=== PATIENT | male | born 1970 | race Hispanic/Latino ===

== ENCOUNTER 2020-04-02 12:26 | Emergency (ER) | payer SELFPAY ==
[~2020-04-02] VITALS: Ht 167.6 cm; Wt 55.5 kg
[~2020-04-02 12:26] MED LIST: NAPROSYN375 MG PO; NAPROXEN500 MG PO; TORADOL OR; TRAMADOL HCL50 MG PO
[2020-04-02] MEDS ORDERED: CENTRUM ADULTS1 TAB PO (12:48)
[2020-04-02 13:42] LABS: IMMATURE GRANULOCYTES 0.7 % (0.0-5.0); MEAN CELL VOLUME 91.7 fL CALC (80.0-100.0); MEAN CORPUSCULAR HGB 29.6 pG CALC (26.0-32.0); MEAN CORPUSCULAR HGB CONC 32.3 g/dL CAL (32.0-36.0); NEUT# 13.9 thou/uL (1.82-7.42); RED BLOOD COUNT 2.06 mill/uL (4.70-6.10); RED CELL DISTRI WIDTH 18.8 % (11.5-15.5)
[2020-04-02 13:58] LABS: BUN 7 mg/dL (9-20); BUN/CREATININE RATIO 7 (12-20 (CALC)); CHLORIDE 91 mmol/l (95-108); CREATININE 0.9 mg/dL (0.7-1.3); GFR > 60 ML/MIN (>=60 (CALC)); GFR FOR AFR.AMER. > 60 ML/MIN (>=60 (CALC)); LIPASE 172 u/l (23-300); POTASSIUM 4.7 mmol/l (3.5-5.1); SGOT/AST 85 u/l (17-59)
[2020-04-02 13:59] LABS: HEMATOCRIT 18.9 % (39.0-50.0); HEMOGLOBIN 6.1 g/dl (14.0-18.0)
[2020-04-02 14:00] LABS: ALBUMIN 2.7 g/dL (3.2-5.0); ALKALINE PHOSPHATASE 251 u/l (38-126); ANION GAP 16 (6-22 (CALC)); BILIRUBIN, TOTAL 2.7 mg/dL (0.0-1.4); CARBON DIOXIDE 19 mmol/l (22-30); SODIUM 121 mmol/l (137-146)
[2020-04-02 15:59] VITALS: BP 125/62
[2020-04-02 16:15] VITALS: BP 115/71
[2020-04-02 17:00] VITALS: BP 124/80
[2020-04-03 08:54] VITALS: BP 143/80
== END 2020-04-02 18:27 | disposition short-term general hospital (02) | DRG 947 ==
LOC: ED 12:26
PROVIDERS: Family Medicine
PROC: 30233N1 Transfusion of Nonautologous Red Blood Cells into Peripheral Vein, Percutaneous Approach (ICD-10-PCS; principal; 2020-04-02)
DX: R18.8 Other ascites (principal); J18.9 Pneumonia, unspecified organism; R19.5 Other fecal abnormalities; D64.9 Anemia, unspecified; F10.20 Alcohol dependence, uncomplicated; Z59.0 Homelessness; Z20.828 Contact with and (suspected) exposure to other viral communicable diseases
CPT/HCPCS: P9016; Q9967

== ENCOUNTER 2020-04-15 15:15 | Emergency (ER) | payer SELFPAY ==
[~2020-04-15] VITALS: Ht 167.6 cm; Wt 68.0 kg
[~2020-04-15 15:15] MED LIST changes: +CENTRUM ADULTS1 TAB PO
[2020-04-15 18:24] LABS: IMMATURE GRANULOCYTES 0.7 % (0.0-5.0); MEAN CELL VOLUME 92.1 fL CALC (80.0-100.0); MEAN CORPUSCULAR HGB 30.9 pG CALC (26.0-32.0); MEAN CORPUSCULAR HGB CONC 33.6 g/dL CAL (32.0-36.0); NEUT# 11.84 thou/uL (1.82-7.42); RED BLOOD COUNT 2.91 mill/uL (4.70-6.10); RED CELL DISTRI WIDTH 16.8 % (11.5-15.5)
[2020-04-15 18:28] LABS: ALKALINE PHOSPHATASE 178 u/l (38-126); ANION GAP 14 (6-22 (CALC)); BILIRUBIN, TOTAL 3.8 mg/dL (0.0-1.4); BUN 14 mg/dL (9-20); BUN/CREATININE RATIO 11 (12-20 (CALC)); CARBON DIOXIDE 23 mmol/l (22-30); CHLORIDE 90 mmol/l (95-108); CREATININE 1.3 mg/dL (0.7-1.3); GFR 58 ML/MIN (>=60 (CALC)); GFR FOR AFR.AMER. > 60 ML/MIN (>=60 (CALC)); HEMATOCRIT 26.8 % (39.0-50.0); LIPASE 274 u/l (23-300); POTASSIUM 4.1 mmol/l (3.5-5.1); SGOT/AST 80 u/l (17-59); SODIUM 123 mmol/l (137-146)
[2020-04-15] MEDS ORDERED: LEVAQUIN750 MG PO ×2 (21:31)
[2020-04-15 21:46] VITALS: BP 159/84
[2020-04-16] MEDS ORDERED: PEPCID AC20 MG PO (13:55)
[2020-04-16] MEDS ORDERED: LASIX 40 MG TAB40 MG PO (13:56)
[2020-04-16] MEDS ORDERED: FERR SULFATE325 MG PO (13:56)
[2020-04-16] MEDS ORDERED: MIDODRINE5 MG PO (13:57)
[2020-04-16] MEDS ORDERED: INDERAL10 M1 PO (14:00)
[2020-04-16] MEDS ORDERED: SPIRONOLACTONE50 MG PO (14:01)
== END 2020-04-15 21:56 | disposition left against medical advice (07) | DRG 194 ==
LOC: ED 15:15
PROVIDERS: Family Medicine
DX: J18.9 Pneumonia, unspecified organism (principal); E87.1 Hypo-osmolality and hyponatremia; D64.9 Anemia, unspecified; K74.60 Unspecified cirrhosis of liver; Z91.19 Patient's noncompliance with other medical treatment and regimen; Z20.828 Contact with and (suspected) exposure to other viral communicable diseases

== ENCOUNTER 2020-04-16 13:05 | Emergency (ER) | payer SELFPAY ==
[~2020-04-16] VITALS: Ht 167.6 cm; Wt 75.0 kg
[~2020-04-16 13:05] MED LIST changes: +LEVAQUIN750 MG PO
[2020-04-16] MEDS ORDERED: PEPCID AC20 MG PO (13:55)
[2020-04-16] MEDS ORDERED: FERR SULFATE325 MG PO (13:56)
[2020-04-16] MEDS ORDERED: LASIX 40 MG TAB40 MG PO (13:56)
[2020-04-16] MEDS ORDERED: MIDODRINE5 MG PO (13:57)
[2020-04-16] MEDS ORDERED: INDERAL10 M1 PO (14:00)
[2020-04-16] MEDS ORDERED: SPIRONOLACTONE50 MG PO (14:01)
[2020-04-16 14:12] LABS: HEMOGLOBIN 8.1 g/dl (14.0-18.0); IMMATURE GRANULOCYTES 0.7 % (0.0-5.0); MEAN CELL VOLUME 90.9 fL CALC (80.0-100.0); MEAN CORPUSCULAR HGB 30.7 pG CALC (26.0-32.0); MEAN CORPUSCULAR HGB CONC 33.8 g/dL CAL (32.0-36.0); NEUT# 9.71 thou/uL (1.82-7.42); RED BLOOD COUNT 2.64 mill/uL (4.70-6.10); RED CELL DISTRI WIDTH 16.9 % (11.5-15.5)
[2020-04-16 14:37] LABS: ALBUMIN 2.8 g/dL (3.2-5.0); ALKALINE PHOSPHATASE 139 u/l (38-126); ANION GAP 15 (6-22 (CALC)); BILIRUBIN, TOTAL 2.8 mg/dL (0.0-1.4); BUN 16 mg/dL (9-20); BUN/CREATININE RATIO 12 (12-20 (CALC)); CARBON DIOXIDE 23 mmol/l (22-30); CHLORIDE 91 mmol/l (95-108); CREATININE 1.4 mg/dL (0.7-1.3); GFR 53 ML/MIN (>=60 (CALC)); GFR FOR AFR.AMER. > 60 ML/MIN (>=60 (CALC)); MAGNESIUM 1.5 mg/dL (1.6-2.3); POTASSIUM 4.2 mmol/l (3.5-5.1); SGOT/AST 61 u/l (17-59); SODIUM 125 mmol/l (137-146); TOTAL PROTEIN 7.5 g/dL (6.3-8.2)
[2020-04-16 16:34] VITALS: BP 122/66
== END 2020-04-16 16:35 | disposition short-term general hospital (02) | DRG 377 ==
LOC: ED 13:05 → ED-I 14:44 → ED 16:35
DX: K92.2 Gastrointestinal hemorrhage, unspecified (principal); J18.9 Pneumonia, unspecified organism; D64.9 Anemia, unspecified; K74.60 Unspecified cirrhosis of liver; R49.22 Hyponasality; E83.42 Hypomagnesemia; Z20.828 Contact with and (suspected) exposure to other viral communicable diseases
CPT/HCPCS: J3475

== ENCOUNTER 2020-04-26 16:03 | Emergency (ER) | payer SELFPAY ==
[~2020-04-26] VITALS: Ht 167.6 cm; Wt 69.0 kg
[~2020-04-26 16:03] MED LIST changes: +FERR SULFATE325 MG PO; +INDERAL10 M1 PO; +LASIX 40 MG TAB40 MG PO; +MIDODRINE5 MG PO; +PEPCID AC20 MG PO; +SPIRONOLACTONE50 MG PO
[2020-04-26 16:32] LABS: HEMATOCRIT 26.4 % (39.0-50.0); IMMATURE GRANULOCYTES 0.5 % (0.0-5.0); MEAN CELL VOLUME 91.7 fL CALC (80.0-100.0); MEAN CORPUSCULAR HGB 31.3 pG CALC (26.0-32.0); MEAN CORPUSCULAR HGB CONC 34.1 g/dL CAL (32.0-36.0); NEUT# 6.73 thou/uL (1.82-7.42); RED BLOOD COUNT 2.88 mill/uL (4.70-6.10); RED CELL DISTRI WIDTH 15.8 % (11.5-15.5)
[2020-04-26 16:51] LABS: ALBUMIN 2.5 g/dL (3.2-5.0); ALKALINE PHOSPHATASE 159 u/l (38-126); ANION GAP 12 (6-22 (CALC)); BILIRUBIN, TOTAL 3.1 mg/dL (0.0-1.4); BUN 10 mg/dL (9-20); BUN/CREATININE RATIO 9 (12-20 (CALC)); CARBON DIOXIDE 26 mmol/l (22-30); CHLORIDE 89 mmol/l (95-108); CREATININE 1.2 mg/dL (0.7-1.3); GFR > 60 ML/MIN (>=60 (CALC)); GFR FOR AFR.AMER. > 60 ML/MIN (>=60 (CALC)); POTASSIUM 3.8 mmol/l (3.5-5.1); SGOT/AST 47 u/l (17-59); SODIUM 123 mmol/l (137-146); TOTAL PROTEIN 7.1 g/dL (6.3-8.2)
[2020-04-26 17:42] LABS: URINE BILIRUBIN - DIPSTICK NEGATIVE (NEGATIVE); URINE BLOOD DIPSTICK NEGATIVE (NEGATIVE); URINE COLOR YELLOW; URINE GLUCOSE - DIPSTICK NEGATIVE (NEGATIVE); URINE KETONE NEGATIVE (NEGATIVE); URINE LEUK ESTERASE NEGATIVE (NEGATIVE); URINE NITRITE - DIPSTICK NEGATIVE (Negative); URINE PH 5.5 (4.5-8.0); URINE PROTEIN - DIPSTICK NEGATIVE (NEG-TRACE); URINE SPECIFIC GRAVITY 1.025
[2020-04-26 19:15] VITALS: BP 148/88
== END 2020-04-26 19:50 | disposition short-term general hospital (02) | DRG 432 ==
LOC: ED 16:03
DX: K74.60 Unspecified cirrhosis of liver (principal); J18.9 Pneumonia, unspecified organism; R18.8 Other ascites; E87.1 Hypo-osmolality and hyponatremia; D64.9 Anemia, unspecified; Z72.89 Other problems related to lifestyle

== ENCOUNTER 2020-05-10 00:59 | Observation (INO) | payer SELFPAY ==
[~2020-05-10] VITALS: Ht 167.6 cm; Wt 63.1 kg
[2020-05-10] VITALS (8 sets, daily range): BP systolic 101–132; BP diastolic 57–87
[2020-05-10] MEDS ORDERED: LACTULOSE PO (01:17)
[2020-05-10 01:38] LABS: HEMATOCRIT 22.6 % (39.0-50.0); HEMOGLOBIN 7.8 g/dl (14.0-18.0); IMMATURE GRANULOCYTES 0.3 % (0.0-5.0); MEAN CELL VOLUME 89.7 fL CALC (80.0-100.0); MEAN CORPUSCULAR HGB CONC 34.5 g/dL CAL (32.0-36.0); NEUT# 4.94 thou/uL (1.82-7.42); RED BLOOD COUNT 2.52 mill/uL (4.70-6.10); RED CELL DISTRI WIDTH 16.2 % (11.5-15.5)
[2020-05-10 01:56] LABS: INTERNATIONAL NORMALIZED RATIO 1.5 RATIO (0.7-1.3); PROTHROMBIN TIME 14.4 SECONDS (9.0-12.5)
[2020-05-10 02:07] LABS: ALBUMIN 2.4 g/dL (3.2-5.0); ALKALINE PHOSPHATASE 150 u/l (38-126); ANION GAP 9 (6-22 (CALC)); BILIRUBIN, TOTAL 2.8 mg/dL (0.0-1.4); BUN 5 mg/dL (9-20); BUN/CREATININE RATIO 5 (12-20 (CALC)); CARBON DIOXIDE 24 mmol/l (22-30); CHLORIDE 96 mmol/l (95-108); GFR > 60 ML/MIN (>=60 (CALC)); GFR FOR AFR.AMER. > 60 ML/MIN (>=60 (CALC)); SGOT/AST 47 u/l (17-59); SODIUM 126 mmol/l (137-146); TOTAL PROTEIN 6.7 g/dL (6.3-8.2)
[2020-05-10 02:23] LABS: POTASSIUM 2.9 mmol/l (3.5-5.1)
[2020-05-10 03:52] LABS: URINE BILIRUBIN - DIPSTICK NEGATIVE (NEGATIVE); URINE BLOOD DIPSTICK TRACE-INTACT (NEGATIVE); URINE COLOR YELLOW; URINE GLUCOSE - DIPSTICK NEGATIVE (NEGATIVE); URINE KETONE NEGATIVE (NEGATIVE); URINE LEUK ESTERASE NEGATIVE (NEGATIVE); URINE NITRITE - DIPSTICK NEGATIVE (Negative); URINE PROTEIN - DIPSTICK NEGATIVE (NEG-TRACE); URINE SPECIFIC GRAVITY <=1.005; URINE UROBILINOGEN - DIPSTICK 0.2 E.U./dL (0.2)
[2020-05-10 09:10] LABS: ANION GAP 11 (6-22 (CALC)); BUN 5 mg/dL (9-20); BUN/CREATININE RATIO 6 (12-20 (CALC)); CARBON DIOXIDE 24 mmol/l (22-30); CHLORIDE 95 mmol/l (95-108); CREATININE 0.9 mg/dL (0.7-1.3); GFR > 60 ML/MIN (>=60 (CALC)); GFR FOR AFR.AMER. > 60 ML/MIN (>=60 (CALC)); MAGNESIUM 1.2 mg/dL (1.6-2.3); SODIUM 126 mmol/l (137-146)
[2020-05-10 09:11] LABS: POTASSIUM 3.5 mmol/l (3.5-5.1)
[2020-05-10] MEDS ORDERED: ALDACTONE25 MG PO (12:03)
[2020-05-10] MEDS ORDERED: FAMOTIDINE20 M1 PO (12:04)
[2020-05-10] MEDS ORDERED: FOLIC ACID1 MG PO (12:05)
[2020-05-10] MEDS ORDERED: FERR SULFATE325 MG PO (12:05)
[2020-05-10] MEDS ORDERED: MIDODRINE HYDROC5 MG PO (12:07)
[2020-05-10] MEDS ORDERED: MV-ONE PO (12:07)
[2020-05-10] MEDS ORDERED: INDERAL10 M1 PO (12:08)
[2020-05-10] MEDS ORDERED: VITAMIN B-1100 M1 PO (12:09)
[2020-05-10 14:01] LABS: HEMATOCRIT 27.8 % (39.0-50.0); HEMOGLOBIN 9.6 g/dl (14.0-18.0); IMMATURE GRANULOCYTES 0.5 % (0.0-5.0); MEAN CELL VOLUME 87.7 fL CALC (80.0-100.0); MEAN CORPUSCULAR HGB 30.3 pG CALC (26.0-32.0); MEAN CORPUSCULAR HGB CONC 34.5 g/dL CAL (32.0-36.0); NEUT# 6.81 thou/uL (1.82-7.42); RED BLOOD COUNT 3.17 mill/uL (4.70-6.10); RED CELL DISTRI WIDTH 16.2 % (11.5-15.5)
[2020-05-10 16:45] LABS: ANION GAP 11 (6-22 (CALC)); BUN 6 mg/dL (9-20); BUN/CREATININE RATIO 6 (12-20 (CALC)); CARBON DIOXIDE 23 mmol/l (22-30); CHLORIDE 96 mmol/l (95-108); CREATININE 0.9 mg/dL (0.7-1.3); GFR > 60 ML/MIN (>=60 (CALC)); GFR FOR AFR.AMER. > 60 ML/MIN (>=60 (CALC)); MAGNESIUM 1.3 mg/dL (1.6-2.3); POTASSIUM 3.7 mmol/l (3.5-5.1); SODIUM 126 mmol/l (137-146)
[2020-05-10 20:23] LABS: HEMATOCRIT 29.4 % (39.0-50.0); HEMOGLOBIN 10.1 g/dl (14.0-18.0)
[2020-05-11] VITALS: BP 111/67
[2020-05-11 04:17] VITALS: BP 113/75
[2020-05-11 05:06] LABS: HEMATOCRIT 27.2 % (39.0-50.0); HEMOGLOBIN 9.5 g/dl (14.0-18.0); MEAN CELL VOLUME 86.3 fL CALC (80.0-100.0); MEAN CORPUSCULAR HGB 30.2 pG CALC (26.0-32.0); MEAN CORPUSCULAR HGB CONC 34.9 g/dL CAL (32.0-36.0); RED BLOOD COUNT 3.15 mill/uL (4.70-6.10); RED CELL DISTRI WIDTH 16.5 % (11.5-15.5)
[2020-05-11 05:28] LABS: ALBUMIN 2.8 g/dL (3.2-5.0); ALKALINE PHOSPHATASE 212 u/l (38-126); ANION GAP 11 (6-22 (CALC)); BUN 8 mg/dL (9-20); BUN/CREATININE RATIO 7 (12-20 (CALC)); CARBON DIOXIDE 23 mmol/l (22-30); CHLORIDE 94 mmol/l (95-108); CREATININE 1.1 mg/dL (0.7-1.3); GFR > 60 ML/MIN (>=60 (CALC)); GFR FOR AFR.AMER. > 60 ML/MIN (>=60 (CALC)); POTASSIUM 3.5 mmol/l (3.5-5.1); SGOT/AST 52 u/l (17-59); SODIUM 125 mmol/l (137-146); TOTAL PROTEIN 7.6 g/dL (6.3-8.2)
[2020-05-11 07:57] VITALS: BP 95/46
[2020-05-11 11:02] VITALS: BP 117/64
[2020-05-11] MEDS ORDERED: LACTULOSE10 GM/15 M PO (12:07)
[2020-05-11] MEDS ORDERED: ALDACTONE25 MG PO (12:09)
[2020-05-11] MEDS ORDERED: FAMOTIDINE20 M1 PO (12:09)
== END 2020-05-11 14:15 | disposition home or self-care (01) | DRG 433 ==
LOC: ED 00:59 → ED-I 03:20 → ED 03:43 → ED-I 03:44 → MS2 07:07
PROVIDERS: Emergency Medicine; Nurse Practitioner; Nurse Practitioner Family; ADMIT Internal Medicine; ATTEND Internal Medicine
PROC: 0W9G3ZZ Drainage of Peritoneal Cavity, Percutaneous Approach (ICD-10-PCS; principal; 2020-05-10)
PROC: 30233N1 Transfusion of Nonautologous Red Blood Cells into Peripheral Vein, Percutaneous Approach (ICD-10-PCS; 2020-05-10)
DX: K74.60 Unspecified cirrhosis of liver (principal); R18.8 Other ascites; E87.1 Hypo-osmolality and hyponatremia; D64.9 Anemia, unspecified; E87.6 Hypokalemia; E83.42 Hypomagnesemia; Z20.828 Contact with and (suspected) exposure to other viral communicable diseases
CPT/HCPCS: G0378; J3475; P9016; Q9967

== ENCOUNTER 2020-05-29 09:43 | Emergency (ER) | payer SELFPAY ==
[~2020-05-29] VITALS: Ht 167.6 cm; Wt 61.8 kg
[~2020-05-29 09:43] MED LIST changes: +ALDACTONE25 MG PO; +FAMOTIDINE20 M1 PO; +FOLIC ACID1 MG PO; +LACTULOSE PO; +LACTULOSE10 GM/15 M PO; +MIDODRINE HYDROC5 MG PO; +MV-ONE PO; +VITAMIN B-1100 M1 PO
[2020-05-29 10:55] VITALS: BP 125/80
== END 2020-05-29 11:13 | disposition home or self-care (01) | DRG 605 ==
LOC: ED 09:43
DX: S00.91XA Abrasion of unspecified part of head, initial encounter (principal); D22.4 Melanocytic nevi of scalp and neck; X58.XXXA Exposure to other specified factors, initial encounter

== ENCOUNTER 2020-06-03 03:20 | Emergency (ER) | payer SELFPAY ==
[~2020-06-03] VITALS: Ht 167.6 cm; Wt 63.0 kg
[2020-06-03 03:57] LABS: HEMATOCRIT 23.3 % (39.0-50.0); HEMOGLOBIN 8.1 g/dl (14.0-18.0); IMMATURE GRANULOCYTES 0.3 % (0.0-5.0); MEAN CORPUSCULAR HGB 31.6 pG CALC (26.0-32.0); MEAN CORPUSCULAR HGB CONC 34.8 g/dL CAL (32.0-36.0); NEUT# 5.03 thou/uL (1.82-7.42); RED BLOOD COUNT 2.56 mill/uL (4.70-6.10); RED CELL DISTRI WIDTH 17.3 % (11.5-15.5)
[2020-06-03 04:18] LABS: ALBUMIN 2.9 g/dL (3.2-5.0); ALKALINE PHOSPHATASE 169 u/l (38-126); AMYLASE 83 u/l (30-110); BUN 10 mg/dL (9-20); BUN/CREATININE RATIO 8 (12-20 (CALC)); CHLORIDE 94 mmol/l (95-108); CREATININE 1.2 mg/dL (0.7-1.3); ETHYL ALCOHOL 0 mg/dl (0-30); GFR > 60 ML/MIN (>=60 (CALC)); GFR FOR AFR.AMER. > 60 ML/MIN (>=60 (CALC)); INTERNATIONAL NORMALIZED RATIO 1.6 RATIO (0.7-1.3); LIPASE 357 u/l (23-300); POTASSIUM 2.9 mmol/l (3.5-5.1); PROTHROMBIN TIME 15.5 SECONDS (9.0-12.5); SGOT/AST 44 u/l (17-59); SODIUM 128 mmol/l (137-146); TOTAL PROTEIN 7.4 g/dL (6.3-8.2)
[2020-06-03 04:19] LABS: ANION GAP 9 (6-22 (CALC)); CARBON DIOXIDE 28 mmol/l (22-30); MAGNESIUM 1.4 mg/dL (1.6-2.3)
[2020-06-03 06:43] LABS: URINE BILIRUBIN - DIPSTICK NEGATIVE (NEGATIVE); URINE BLOOD DIPSTICK NEGATIVE (NEGATIVE); URINE COLOR YELLOW; URINE GLUCOSE - DIPSTICK NEGATIVE (NEGATIVE); URINE KETONE NEGATIVE (NEGATIVE); URINE LEUK ESTERASE NEGATIVE (NEGATIVE); URINE NITRITE - DIPSTICK NEGATIVE (Negative); URINE PH 7.5 (4.5-8.0); URINE PROTEIN - DIPSTICK NEGATIVE (NEG-TRACE); URINE SPECIFIC GRAVITY <=1.005; URINE UROBILINOGEN - DIPSTICK 0.2 E.U./dL (0.2)
[2020-06-03] MEDS ORDERED: K-DUR/KLOR-CON20 MEQ PO (06:54)
[2020-06-03] MEDS ORDERED: MAG OXIDE400 MG PO (06:54)
[2020-06-03 07:01] VITALS: BP 141/72
[2020-06-03] MEDS ORDERED: FIORICET PO (18:52)
== END 2020-06-03 07:10 | disposition home or self-care (01) | DRG 432 ==
LOC: ED 03:20
PROVIDERS: Family Medicine
DX: K74.60 Unspecified cirrhosis of liver (principal); R18.8 Other ascites; K85.90 Acute pancreatitis without necrosis or infection, unspecified; E87.1 Hypo-osmolality and hyponatremia; E87.6 Hypokalemia; Z20.828 Contact with and (suspected) exposure to other viral communicable diseases; K80.20 Calculus of gallbladder without cholecystitis without obstruction; T47.3X6A Underdosing of saline and osmotic laxatives, initial encounter; Z91.128 Patient's intentional underdosing of medication regimen for other reason; E83.42 Hypomagnesemia
CPT/HCPCS: Q9967

== ENCOUNTER 2020-06-03 14:18 | Emergency (ER) | payer SELFPAY ==
[~2020-06-03] VITALS: Ht 167.6 cm; Wt 40.0 kg
[~2020-06-03 14:18] MED LIST changes: +K-DUR/KLOR-CON20 MEQ PO; +MAG OXIDE400 MG PO
[2020-06-03 17:17] LABS: HEMATOCRIT 26.6 % (39.0-50.0); HEMOGLOBIN 9.1 g/dl (14.0-18.0); IMMATURE GRANULOCYTES 0.4 % (0.0-5.0); MEAN CELL VOLUME 90.5 fL CALC (80.0-100.0); MEAN CORPUSCULAR HGB CONC 34.2 g/dL CAL (32.0-36.0); NEUT# 4.54 thou/uL (1.82-7.42); RED BLOOD COUNT 2.94 mill/uL (4.70-6.10); RED CELL DISTRI WIDTH 17.4 % (11.5-15.5)
[2020-06-03 17:36] LABS: ALBUMIN 3.1 g/dL (3.2-5.0); BILIRUBIN, TOTAL 3.3 mg/dL (0.0-1.4); CREATININE 1.5 mg/dL (0.7-1.3)
[2020-06-03 18:13] LABS: POTASSIUM 3.5 mmol/l (3.5-5.1)
[2020-06-03] MEDS ORDERED: FIORICET PO (18:52)
[2020-06-03 19:37] VITALS: BP 158/77
== END 2020-06-03 19:46 | disposition home or self-care (01) | DRG 103 ==
LOC: ED 14:18
PROVIDERS: Emergency Medicine
PROC: 0HQ1XZZ Repair Face Skin, External Approach (ICD-10-PCS; principal; 2020-06-03)
DX: R51.9 Headache, unspecified (principal); D22.39 Melanocytic nevi of other parts of face; S00.81XA Abrasion of other part of head, initial encounter; K74.60 Unspecified cirrhosis of liver; X58.XXXA Exposure to other specified factors, initial encounter

== ENCOUNTER 2020-06-08 13:31 | Emergency (ER) | payer SELFPAY ==
[~2020-06-08] VITALS: Ht 167.6 cm; Wt 59.0 kg
[~2020-06-08 13:31] MED LIST changes: +FIORICET PO
[2020-06-08 14:25] LABS: HEMATOCRIT 25.4 % (39.0-50.0); HEMOGLOBIN 8.6 g/dl (14.0-18.0); IMMATURE GRANULOCYTES 0.4 % (0.0-5.0); MEAN CELL VOLUME 92.4 fL CALC (80.0-100.0); MEAN CORPUSCULAR HGB 31.3 pG CALC (26.0-32.0); MEAN CORPUSCULAR HGB CONC 33.9 g/dL CAL (32.0-36.0); NEUT# 3.55 thou/uL (1.82-7.42); RED BLOOD COUNT 2.75 mill/uL (4.70-6.10); RED CELL DISTRI WIDTH 17.7 % (11.5-15.5)
[2020-06-08 14:47] LABS: ALKALINE PHOSPHATASE 190 u/l (38-126); BILIRUBIN, TOTAL 2.8 mg/dL (0.0-1.4); BUN 12 mg/dL (9-20); BUN/CREATININE RATIO 9 (12-20 (CALC)); CHLORIDE 97 mmol/l (95-108); CREATININE 1.4 mg/dL (0.7-1.3); ETHYL ALCOHOL 0 mg/dl (0-30); GFR 53 ML/MIN (>=60 (CALC)); GFR FOR AFR.AMER. > 60 ML/MIN (>=60 (CALC)); LIPASE 229 u/l (23-300); SGOT/AST 54 u/l (17-59); SODIUM 125 mmol/l (137-146); TOTAL PROTEIN 7.7 g/dL (6.3-8.2)
[2020-06-08 14:51] LABS: ANION GAP 11 (6-22 (CALC)); CARBON DIOXIDE 22 mmol/l (22-30); POTASSIUM 4.7 mmol/l (3.5-5.1)
[2020-06-08 14:51] LABS: URINE BILIRUBIN - DIPSTICK NEGATIVE (NEGATIVE); URINE BLOOD DIPSTICK NEGATIVE (NEGATIVE); URINE COLOR YELLOW; URINE GLUCOSE - DIPSTICK NEGATIVE (NEGATIVE); URINE KETONE NEGATIVE (NEGATIVE); URINE LEUK ESTERASE NEGATIVE (NEGATIVE); URINE NITRITE - DIPSTICK NEGATIVE (Negative); URINE PH 6.5 (4.5-8.0); URINE PROTEIN - DIPSTICK NEGATIVE (NEG-TRACE); URINE UROBILINOGEN - DIPSTICK 0.2 E.U./dL (0.2)
[2020-06-08 15:02] LABS: ACT PARTIAL THROMBO TIME 34.5 SECONDS (20.0-32.5); INTERNATIONAL NORMALIZED RATIO 1.4 RATIO (0.7-1.3); PROTHROMBIN TIME 13.9 SECONDS (9.0-12.5)
[2020-06-08] MEDS ORDERED: FUROSEMIDE20 MG PO (16:40)
[2020-06-08] MEDS ORDERED: BACLOFEN10 MG PO (16:41)
[2020-06-08] MEDS ORDERED: VOLTAREN1%GEL TOP (16:44)
[2020-06-08 17:38] VITALS: BP 155/83
== END 2020-06-08 19:40 | disposition home or self-care (01) | DRG 880 ==
LOC: ED 13:31
DX: F41.9 Anxiety disorder, unspecified (principal); T42.8X5A Adverse effect of antiparkinsonism drugs and other central muscle-tone depressants, initial encounter; E87.1 Hypo-osmolality and hyponatremia; K74.60 Unspecified cirrhosis of liver
CPT/HCPCS: J2060

== ENCOUNTER 2020-06-09 22:50 | Emergency (ER) | payer SELFPAY ==
[~2020-06-09] VITALS: Ht 167.6 cm; Wt 59.0 kg
[~2020-06-09 22:50] MED LIST changes: +BACLOFEN10 MG PO; +FUROSEMIDE20 MG PO; +VOLTAREN1%GEL TOP
[2020-06-10 01:27] LABS: HEMATOCRIT 24.3 % (39.0-50.0); HEMOGLOBIN 8.3 g/dl (14.0-18.0); IMMATURE GRANULOCYTES 0.4 % (0.0-5.0); MEAN CELL VOLUME 92.7 fL CALC (80.0-100.0); MEAN CORPUSCULAR HGB 31.7 pG CALC (26.0-32.0); MEAN CORPUSCULAR HGB CONC 34.2 g/dL CAL (32.0-36.0); NEUT# 5.27 thou/uL (1.82-7.42); RED BLOOD COUNT 2.62 mill/uL (4.70-6.10); RED CELL DISTRI WIDTH 17.8 % (11.5-15.5)
[2020-06-10 01:43] LABS: ALBUMIN 3.1 g/dL (3.2-5.0); BILIRUBIN, TOTAL 2.7 mg/dL (0.0-1.4); CREATININE 1.9 mg/dL (0.7-1.3); POTASSIUM 4.1 mmol/l (3.5-5.1); TOTAL PROTEIN 7.9 g/dL (6.3-8.2)
[2020-06-10 01:52] LABS: URINE BLOOD DIPSTICK NEGATIVE (NEGATIVE); URINE COLOR YELLOW; URINE GLUCOSE - DIPSTICK NEGATIVE (NEGATIVE); URINE KETONE NEGATIVE (NEGATIVE); URINE LEUK ESTERASE NEGATIVE (NEGATIVE); URINE NITRITE - DIPSTICK NEGATIVE (Negative); URINE PROTEIN - DIPSTICK NEGATIVE (NEG-TRACE); URINE UROBILINOGEN - DIPSTICK 0.2 E.U./dL (0.2)
[2020-06-10 01:58] LABS: INTERNATIONAL NORMALIZED RATIO 1.4 RATIO (0.7-1.3); PROTHROMBIN TIME 13.4 SECONDS (9.0-12.5)
[2020-06-10 01:59] LABS: URINE BILIRUBIN - DIPSTICK SMALL (NEGATIVE)
[2020-06-10 03:21] VITALS: BP 171/81
== END 2020-06-10 07:08 | disposition home or self-care (01) | DRG 882 ==
LOC: ED 22:50
PROVIDERS: Emergency Medicine
DX: F43.22 Adjustment disorder with anxiety (principal); K74.60 Unspecified cirrhosis of liver; D64.9 Anemia, unspecified

== ENCOUNTER 2020-06-18 06:30 | Emergency (ER) | payer SELFPAY ==
[~2020-06-18] VITALS: Ht 167.6 cm; Wt 59.1 kg
[2020-06-18 07:21] LABS: URINE BLOOD DIPSTICK NEGATIVE (NEGATIVE); URINE COLOR YELLOW; URINE GLUCOSE - DIPSTICK NEGATIVE (NEGATIVE); URINE KETONE TRACE mg/dL (NEGATIVE); URINE LEUK ESTERASE NEGATIVE (NEGATIVE); URINE NITRITE - DIPSTICK NEGATIVE (Negative); URINE PROTEIN - DIPSTICK TRACE mg/dL (NEG-TRACE); URINE SPECIFIC GRAVITY 1.025
[2020-06-18 07:22] LABS: URINE BILIRUBIN - DIPSTICK NEGATIVE (NEGATIVE)
[2020-06-18 07:38] LABS: HEMATOCRIT 23.5 % (39.0-50.0); HEMOGLOBIN 8.3 g/dl (14.0-18.0); IMMATURE GRANULOCYTES 0.4 % (0.0-5.0); MEAN CELL VOLUME 91.1 fL CALC (80.0-100.0); MEAN CORPUSCULAR HGB 32.2 pG CALC (26.0-32.0); MEAN CORPUSCULAR HGB CONC 35.3 g/dL CAL (32.0-36.0); NEUT# 4.56 thou/uL (1.82-7.42); RED BLOOD COUNT 2.58 mill/uL (4.70-6.10); RED CELL DISTRI WIDTH 17.2 % (11.5-15.5)
[2020-06-18 07:55] LABS: ALBUMIN 2.8 g/dL (3.2-5.0); BILIRUBIN, TOTAL 3.1 mg/dL (0.0-1.4); CREATININE 1.7 mg/dL (0.7-1.3); POTASSIUM 3.5 mmol/l (3.5-5.1); TOTAL PROTEIN 7.2 g/dL (6.3-8.2)
[2020-06-18 08:23] LABS: INTERNATIONAL NORMALIZED RATIO 1.5 RATIO (0.7-1.3); PROTHROMBIN TIME 14.5 SECONDS (9.0-12.5)
[2020-06-18 08:55] VITALS: BP 163/87
--- NOTE | 2020-06-21 13:56 | NUR ---
Notified significant other, Etta Guo, of negative Covid results.
== END 2020-06-18 08:55 | disposition home or self-care (01) | DRG 103 ==
LOC: ED 06:30
PROVIDERS: Emergency Medicine; Family Medicine
DX: R51.9 Headache, unspecified (principal); E87.1 Hypo-osmolality and hyponatremia; K74.60 Unspecified cirrhosis of liver; F41.9 Anxiety disorder, unspecified; D64.9 Anemia, unspecified; I10 Essential (primary) hypertension; Z20.828 Contact with and (suspected) exposure to other viral communicable diseases

== ENCOUNTER 2020-06-27 09:55 | Emergency (ER) | payer SELFPAY ==
[~2020-06-27] VITALS: Ht 167.6 cm; Wt 60.9 kg
[2020-06-27] MEDS ORDERED: SPIRONOLACTONE25 MG PO (10:31)
[2020-06-27] MEDS ORDERED: PROPRAN/HCT1 PO (10:32)
[2020-06-27 10:36] LABS: HEMATOCRIT 24.6 % (39.0-50.0); HEMOGLOBIN 8.3 g/dl (14.0-18.0); IMMATURE GRANULOCYTES 0.6 % (0.0-5.0); MEAN CELL VOLUME 94.6 fL CALC (80.0-100.0); MEAN CORPUSCULAR HGB 31.9 pG CALC (26.0-32.0); MEAN CORPUSCULAR HGB CONC 33.7 g/dL CAL (32.0-36.0); NEUT# 5.26 thou/uL (1.82-7.42); RED BLOOD COUNT 2.6 mill/uL (4.70-6.10); RED CELL DISTRI WIDTH 18.6 % (11.5-15.5)
[2020-06-27] MEDS ORDERED: FERROUS SULFAT325 MG PO (10:39)
[2020-06-27] MEDS ORDERED: MIDODRINE HYDRO10 MG PO (10:39)
[2020-06-27] MEDS ORDERED: FAMOTIDINE20 M1 PO (10:40)
[2020-06-27] MEDS ORDERED: KRISTALOSE10 GM PO (10:41)
[2020-06-27] MEDS ORDERED: K-TAB20 MEQ PO (10:41)
[2020-06-27] MEDS ORDERED: VITAMIN D2400 UNIT PO (10:41)
[2020-06-27] MEDS ORDERED: CENTRUM SILVER PO (10:42)
[2020-06-27 10:48] LABS: ALBUMIN 3.1 g/dL (3.2-5.0); ALKALINE PHOSPHATASE 193 u/l (38-126); ANION GAP 13 (6-22 (CALC)); BILIRUBIN, TOTAL 2.7 mg/dL (0.0-1.4); BUN 12 mg/dL (9-20); BUN/CREATININE RATIO 9 (12-20 (CALC)); CARBON DIOXIDE 20 mmol/l (22-30); CHLORIDE 102 mmol/l (95-108); CREATININE 1.4 mg/dL (0.7-1.3); GFR 53 ML/MIN (>=60 (CALC)); GFR FOR AFR.AMER. > 60 ML/MIN (>=60 (CALC)); LIPASE 350 u/l (23-300); POTASSIUM 3.3 mmol/l (3.5-5.1); SGOT/AST 46 u/l (17-59); SODIUM 132 mmol/l (137-146); TOTAL PROTEIN 7.8 g/dL (6.3-8.2)
[2020-06-27 11:00] LABS: URINE BILIRUBIN - DIPSTICK NEGATIVE (NEGATIVE); URINE BLOOD DIPSTICK NEGATIVE (NEGATIVE); URINE GLUCOSE - DIPSTICK NEGATIVE (NEGATIVE); URINE KETONE NEGATIVE (NEGATIVE); URINE LEUK ESTERASE NEGATIVE (NEGATIVE); URINE NITRITE - DIPSTICK NEGATIVE (Negative); URINE PH 5.5 (4.5-8.0); URINE PROTEIN - DIPSTICK NEGATIVE (NEG-TRACE); URINE UROBILINOGEN - DIPSTICK 0.2 E.U./dL (0.2)
[2020-06-27 11:02] LABS: URINE COLOR DK. YELLOW
[2020-06-27 14:12] VITALS: BP 180/81
== END 2020-06-27 14:20 | disposition home or self-care (01) | DRG 434 ==
LOC: ED 09:55
PROVIDERS: Family Medicine
PROC: 0W9G3ZZ Drainage of Peritoneal Cavity, Percutaneous Approach (ICD-10-PCS; principal; 2020-06-27)
DX: K70.31 Alcoholic cirrhosis of liver with ascites (principal)

== ENCOUNTER 2020-07-20 10:30 | Emergency (ER) | payer SELFPAY ==
[~2020-07-20] VITALS: Ht 167.6 cm; Wt 75.0 kg
[~2020-07-20 10:30] MED LIST changes: +CENTRUM SILVER PO; +FERROUS SULFAT325 MG PO; +K-TAB20 MEQ PO; +KRISTALOSE10 GM PO; +MIDODRINE HYDRO10 MG PO; +PROPRAN/HCT1 PO; +SPIRONOLACTONE25 MG PO; +VITAMIN D2400 UNIT PO
[2020-07-20 11:15] LABS: HEMATOCRIT 27.3 % (39.0-50.0); HEMOGLOBIN 8.7 g/dl (14.0-18.0); IMMATURE GRANULOCYTES 0.4 % (0.0-5.0); MEAN CELL VOLUME 99.6 fL CALC (80.0-100.0); MEAN CORPUSCULAR HGB 31.8 pG CALC (26.0-32.0); MEAN CORPUSCULAR HGB CONC 31.9 g/dL CAL (32.0-36.0); NEUT# 6.28 thou/uL (1.82-7.42); RED BLOOD COUNT 2.74 mill/uL (4.70-6.10); RED CELL DISTRI WIDTH 16.1 % (11.5-15.5)
[2020-07-20 11:34] LABS: ALBUMIN 2.8 g/dL (3.2-5.0); BILIRUBIN, TOTAL 2.1 mg/dL (0.0-1.4); CREATININE 1.9 mg/dL (0.7-1.3); POTASSIUM 3.4 mmol/l (3.5-5.1); TOTAL PROTEIN 7.3 g/dL (6.3-8.2)
[2020-07-20 11:47] LABS: ACT PARTIAL THROMBO TIME 33.6 SECONDS (20.0-32.5); INTERNATIONAL NORMALIZED RATIO 1.3 RATIO (0.7-1.3); PROTHROMBIN TIME 13.2 SECONDS (9.0-12.5)
[2020-07-20 13:30] VITALS: BP 128/68
== END 2020-07-20 13:30 | disposition home or self-care (01) | DRG 434 ==
LOC: ED 10:30
PROVIDERS: Family Medicine
PROC: 0W9G3ZZ Drainage of Peritoneal Cavity, Percutaneous Approach (ICD-10-PCS; principal; 2020-07-20)
DX: K70.31 Alcoholic cirrhosis of liver with ascites (principal); F10.10 Alcohol abuse, uncomplicated
CPT/HCPCS: P9047

== ENCOUNTER 2020-08-02 06:58 | Emergency (ER) | payer SELFPAY ==
[~2020-08-02] VITALS: Ht 167.6 cm; Wt 65.4 kg
[2020-08-02 08:00] VITALS: BP 158/78
== END 2020-08-02 08:00 | disposition home or self-care (01) | DRG 434 ==
LOC: ED 06:58
DX: K70.31 Alcoholic cirrhosis of liver with ascites (principal); K70.40 Alcoholic hepatic failure without coma; F10.10 Alcohol abuse, uncomplicated

== ENCOUNTER 2020-08-22 07:17 | Emergency (ER) | payer SELFPAY ==
[~2020-08-22] VITALS: Ht 167.6 cm; Wt 80.0 kg
[2020-08-22 07:52] LABS: HEMATOCRIT 28.6 % (39.0-50.0); HEMOGLOBIN 9.3 g/dl (14.0-18.0); IMMATURE GRANULOCYTES 0.4 % (0.0-5.0); MEAN CELL VOLUME 93.8 fL CALC (80.0-100.0); MEAN CORPUSCULAR HGB 30.5 pG CALC (26.0-32.0); MEAN CORPUSCULAR HGB CONC 32.5 g/dL CAL (32.0-36.0); NEUT# 5.91 thou/uL (1.82-7.42); RED BLOOD COUNT 3.05 mill/uL (4.70-6.10); RED CELL DISTRI WIDTH 15.2 % (11.5-15.5)
[2020-08-22] MEDS ORDERED: TAM75CAP PO (08:01)
[2020-08-22] MEDS ORDERED: ZOFRAN4 M1 PO (08:01)
[2020-08-22] MEDS ORDERED: PHENERGAN25 MG/TAB PO (08:02)
[2020-08-22 08:11] LABS: ALBUMIN 2.9 g/dL (3.2-5.0); BILIRUBIN, TOTAL 2.2 mg/dL (0.0-1.4); POTASSIUM 3.2 mmol/l (3.5-5.1); TOTAL PROTEIN 7.2 g/dL (6.3-8.2)
[2020-08-22 08:12] LABS: INTERNATIONAL NORMALIZED RATIO 1.3 RATIO (0.7-1.3); PROTHROMBIN TIME 12.6 SECONDS (9.0-12.5)
[2020-08-22 12:27] VITALS: BP 154/81
== END 2020-08-22 12:25 | disposition home or self-care (01) | DRG 434 ==
LOC: ED 07:17
PROVIDERS: Family Medicine
PROC: 0W9G3ZZ Drainage of Peritoneal Cavity, Percutaneous Approach (ICD-10-PCS; principal; 2020-08-22)
DX: K70.31 Alcoholic cirrhosis of liver with ascites (principal)
CPT/HCPCS: P9047

== ENCOUNTER 2020-09-06 07:12 | Emergency (ER) | payer MEDICAID ==
[~2020-09-06] VITALS: Ht 167.6 cm; Wt 70.0 kg
[~2020-09-06 07:12] MED LIST changes: +PHENERGAN25 MG/TAB PO; +TAM75CAP PO; +ZOFRAN4 M1 PO
[2020-09-06 07:47] LABS: HEMATOCRIT 26.1 % (39.0-50.0); HEMOGLOBIN 8.5 g/dl (14.0-18.0); IMMATURE GRANULOCYTES 0.5 % (0.0-5.0); MEAN CELL VOLUME 93.2 fL CALC (80.0-100.0); MEAN CORPUSCULAR HGB 30.4 pG CALC (26.0-32.0); MEAN CORPUSCULAR HGB CONC 32.6 g/dL CAL (32.0-36.0); NEUT# 5.87 thou/uL (1.82-7.42); RED BLOOD COUNT 2.8 mill/uL (4.70-6.10); RED CELL DISTRI WIDTH 16.2 % (11.5-15.5)
[2020-09-06 08:02] LABS: INTERNATIONAL NORMALIZED RATIO 1.3 RATIO (0.7-1.3); PROTHROMBIN TIME 12.5 SECONDS (9.0-12.5)
[2020-09-06 08:11] LABS: ALBUMIN 2.7 g/dL (3.2-5.0); BILIRUBIN, TOTAL 1.6 mg/dL (0.0-1.4); CREATININE 2.3 mg/dL (0.7-1.3); TOTAL PROTEIN 6.7 g/dL (6.3-8.2)
[2020-09-06 08:16] LABS: POTASSIUM 4.1 mmol/l (3.5-5.1)
[2020-09-06 14:17] VITALS: BP 141/70
== END 2020-09-06 14:00 | disposition home or self-care (01) ==
LOC: ED 07:12
PROVIDERS: Family Medicine
DX: K70.31 Alcoholic cirrhosis of liver with ascites (principal); I10 Essential (primary) hypertension
CPT/HCPCS: P9047

== ENCOUNTER 2020-09-14 19:31 | Emergency (ER) | payer MEDICAID ==
[~2020-09-14] VITALS: Ht 167.6 cm; Wt 58.0 kg
[2020-09-14 20:24] LABS: HEMATOCRIT 27.1 % (39.0-50.0); IMMATURE GRANULOCYTES 0.5 % (0.0-5.0); MEAN CELL VOLUME 91.2 fL CALC (80.0-100.0); MEAN CORPUSCULAR HGB 30.3 pG CALC (26.0-32.0); MEAN CORPUSCULAR HGB CONC 33.2 g/dL CAL (32.0-36.0); NEUT# 7.41 thou/uL (1.82-7.42); RED BLOOD COUNT 2.97 mill/uL (4.70-6.10); RED CELL DISTRI WIDTH 16.7 % (11.5-15.5)
[2020-09-14 20:41] LABS: ALBUMIN 2.9 g/dL (3.2-5.0); BILIRUBIN, TOTAL 1.7 mg/dL (0.0-1.4); CREATININE 2.6 mg/dL (0.7-1.3); POTASSIUM 3.2 mmol/l (3.5-5.1); TOTAL PROTEIN 6.7 g/dL (6.3-8.2)
[2020-09-14] MEDS ORDERED: LACTULOSE PO (20:56)
[2020-09-14 21:30] VITALS: BP 178/82
== END 2020-09-14 21:30 | disposition home or self-care (01) ==
LOC: ED 19:31
PROVIDERS: Family Medicine
DX: K70.31 Alcoholic cirrhosis of liver with ascites (principal); N18.9 Chronic kidney disease, unspecified; D64.9 Anemia, unspecified; E72.20 Disorder of urea cycle metabolism, unspecified

== ENCOUNTER 2020-10-28 14:28 | Observation (INO) | payer MEDICAID ==
[~2020-10-28] VITALS: Ht 167.6 cm; Wt 50.0 kg
--- NOTE | 2020-10-28 14:28 | NUR ---
PATIENT TO ROOM VIA WHEELCHAIR AND PHYSICIAN AT BEDSIDE FOR EVAL
[2020-10-28 15:13] LABS: HEMATOCRIT 27.8 % (39.0-50.0); HEMOGLOBIN 9.1 g/dl (14.0-18.0); IMMATURE GRANULOCYTES 0.8 % (0.0-5.0); MEAN CELL VOLUME 94.2 fL CALC (80.0-100.0); MEAN CORPUSCULAR HGB 30.8 pG CALC (26.0-32.0); MEAN CORPUSCULAR HGB CONC 32.7 g/dL CAL (32.0-36.0); NEUT# 5.75 thou/uL (1.82-7.42); RED BLOOD COUNT 2.95 mill/uL (4.70-6.10); RED CELL DISTRI WIDTH 16.7 % (11.5-15.5)
--- NOTE | 2020-10-28 15:30 | NUR ---
PT RESTING WITH EYES CLOSED.
[2020-10-28 15:32] LABS: ALBUMIN 3.1 g/dL (3.2-5.0); BILIRUBIN, TOTAL 1.3 mg/dL (0.0-1.4); CREATININE 3.5 mg/dL (0.7-1.3); TOTAL PROTEIN 6.8 g/dL (6.3-8.2)
[2020-10-28 15:33] LABS: ACT PARTIAL THROMBO TIME 32.3 SECONDS (20.0-32.5); INTERNATIONAL NORMALIZED RATIO 1.3 RATIO (0.7-1.3)
[2020-10-28 16:49] LABS: URINE BILIRUBIN - DIPSTICK NEGATIVE (NEGATIVE); URINE BLOOD DIPSTICK NEGATIVE (NEGATIVE); URINE COLOR YELLOW; URINE GLUCOSE - DIPSTICK NEGATIVE (NEGATIVE); URINE KETONE NEGATIVE (NEGATIVE); URINE LEUK ESTERASE NEGATIVE (NEGATIVE); URINE PH 5.5 (4.5-8.0); URINE PROTEIN - DIPSTICK NEGATIVE (NEG-TRACE); URINE SPECIFIC GRAVITY 1.015; URINE UROBILINOGEN - DIPSTICK 0.2 E.U./dL (0.2)
[2020-10-28 16:50] LABS: URINE NITRITE - DIPSTICK NEGATIVE (Negative)
--- NOTE | 2020-10-28 16:55 | NUR ---
PADDING APPLIED TO BED, AND PT CHANGED INTO A BRIEF. LACTALOSE IS GIVEN AND FLUIDS INITIATED. WARM BLANKETS PROVIDED FOR COMFORT
--- NOTE | 2020-10-28 17:15 | NUR ---
LEFT THE ER AND LEFT HER CONTACT INFO SUMAYA LEGGETT
--- NOTE | 2020-10-28 17:44 | NUR ---
MD WAS NOTIFIED OF PT APPEARING TO BE BRADYCARDIC WITH A HR OF 46 AND IT WAS CONFIRMED WITH A MANUAL RADIAL PULSE CHECK. PT IS LAYING IN BED DIAPHORETIC. NO CHANGE IN MENTAL STATUS. BP 132/71.
--- NOTE | 2020-10-28 19:29 | NUR ---
ROOM 260 AND [address]LE [address] ASSIGNED.
--- NOTE | 2020-10-28 19:29 | NUR ---
REPORT CALLED TO [facility] ON MED SURG.
[2020-10-28 20:40] VITALS: BP 215/123
--- NOTE | 2020-10-28 20:40 | NUR ---
PT DIFFICULT AND CONFUSED FOR SET TO TRASNFER TO MED SURG, PT IS CONVINCED THIS NURSE IS HIS SIGNIFICANT OTHER SUMAYA AND HE IS GOING HOME, SPEAKS ON PHONE TO FAMILY MEMBERS BUT REMAINS CONFUSED, CRISTELA PAALCIOS AT BEDSIDE TO ASSIST.
--- NOTE | 2020-10-28 20:48 | NUR ---
PT UP TO MED SURG VIA WHEELCHAIR STILL INSISITING THAT THIS NURSE IS SUMAYA, ACCEPTING NURSE AT BEDSIDE ON ARRIVAL, ALL BELONGINGS WITH PT.
--- NOTE | 2020-10-28 22:37 | NUR ---
PATIENT ARRIVED TO THE FLOOR AT 2044 VIA WC AND TECH FROM THE ED IN STABLE CONDITION. VITAL SIGNS TAKEN AND CHARTED. ORIENTED TO ROOM AND CALL LIGHT SYSTEM. CURRENTLY ALERT AND ORIENTED X3 WITH CONFUSION. WAS ABLE TO TELL ME HIS NAME, DATE AND WHERE HE WAS. THE DATE TOOK AWHILE WHILE HE FIGURED IT OUT. ON TELEMETRY RUNNING SINUS RYHTHM. VAD RIGHT FOREARM INFUSING NS AT 80ML/HR. PATIENT CURRENTLY CURLED UP UNDER BLANKETS AND RESTING. WHEN PATIENT FIRST ARRIVED TO THE FLOOR, HE WAS VERY NON COMPLIANT AND WOULDN'T LISTEN TO DIRECTION. HIS WALLET WAS TAKEN HOME FOR SAFETY. FRIEND/FAMILY MEMBER DROPPED OF SOME FOOD AND HIS GLASSES AT 2214. FALL PRECAUTIONS INITIATED AND MAINTAINED. BED ALARM ON. BED IN LOW POSITION. CALL LIGHT WITHIN REACH.
[2020-10-29] VITALS (7 sets, daily range): BP systolic 121–160; BP diastolic 63–91
[2020-10-29 05:40] LABS: INTERNATIONAL NORMALIZED RATIO 1.3 RATIO (0.7-1.3); POTASSIUM 2.9 mmol/l (3.5-5.1)
[2020-10-29 05:42] LABS: HEMATOCRIT 27.6 % (39.0-50.0); HEMOGLOBIN 8.9 g/dl (14.0-18.0); IMMATURE GRANULOCYTES 0.7 % (0.0-5.0); MEAN CELL VOLUME 94.5 fL CALC (80.0-100.0); MEAN CORPUSCULAR HGB 30.5 pG CALC (26.0-32.0); MEAN CORPUSCULAR HGB CONC 32.2 g/dL CAL (32.0-36.0); NEUT# 8.11 thou/uL (1.82-7.42); RED BLOOD COUNT 2.92 mill/uL (4.70-6.10); RED CELL DISTRI WIDTH 16.5 % (11.5-15.5)
--- NOTE | 2020-10-29 08:22 | NUR ---
PT AWAKE, ALERT, ORIENTED X 2-3. PT SPEAKS TO HIS FAMILY ON THE PHONE, STATES THAT HE FEELS MUCH BETTER. PT TAKES LACTULOSE WITHOUT A PROBLEM.
--- NOTE | 2020-10-29 11:00 | NUR ---
PT SEEN BY DR SCHULTZ, DISAPPOINTED TO NEED TO STAY ANOTHER NIGHT PER LOW POTASSIUM.
--- NOTE | 2020-10-29 16:38 | NUR ---
PT'S SIGNIFICANT OTHER VISITED THIS AFTERNOON. PT RECEIVING IV POTASSIUM PER HYPOKALEMIA LATEST BLOODWORK.
--- NOTE | 2020-10-29 19:04 | NUR ---
REPORT FROM POONAM PALACIOS. ASSUMED PT CARE.
--- NOTE | 2020-10-29 19:18 | NUR ---
PT NOTED SITTING UP IN BED. NO APPARENT DISTRESS NOTED. WARM BLANKET PROVIDED. IVF INFUSING WITHOUT DIFFICULTY. CALL LIGHT WITHIN REACH. WILL CONTINUE TO MONITOR.
--- NOTE | 2020-10-29 23:01 | NUR ---
PT RESTING IN BED WITH EYES CLOSED. NO APPARENT DISTRESS NOTED. RESPIRATIONS EVEN AND UNLABORED. OIL HEATER OPERATOR IN PLACE. IVF INFUSING WITHOUT DIFFICULTY. CALL LIGHT WITHIN REACH. WILL CONTINUE TO MONITOR.
--- NOTE | 2020-10-30 03:46 | NUR ---
PT RESTING IN BED WITH EYES CLOSED. NO APPARENT DISTRESS NOTED. RESPIRATIONS EVEN AND UNLABORED. TELEPHONE OPERATOR IN PLACE. IVF INFUSING WITHOUT DIFFICULTY. CALL LIGHT WITHIN REACH. WILL CONTINUE TO MONITOR.
--- NOTE | 2020-10-30 03:47 | NUR ---
PT RESTING IN BED WITH EYES CLOSED. NO APPARENT DISTRESS NOTED. RESPIRATIONS EVEN AND UNLABORED. BINGO MANAGER IN PLACE. IVF INFUSING WITHOUT DIFFICULTY. CALL LIGHT WITHIN REACH. WILL CONTINUE TO MONITOR.
[2020-10-30 04:00] VITALS: BP 133/76
[2020-10-30 04:42] LABS: HEMATOCRIT 24.3 % (39.0-50.0); MEAN CELL VOLUME 93.8 fL CALC (80.0-100.0); MEAN CORPUSCULAR HGB 30.9 pG CALC (26.0-32.0); MEAN CORPUSCULAR HGB CONC 32.9 g/dL CAL (32.0-36.0); RED BLOOD COUNT 2.59 mill/uL (4.70-6.10); RED CELL DISTRI WIDTH 16.6 % (11.5-15.5)
[2020-10-30 04:59] LABS: ALBUMIN 2.6 g/dL (3.2-5.0); BILIRUBIN, TOTAL 1.1 mg/dL (0.0-1.4); CREATININE 2.4 mg/dL (0.7-1.3); POTASSIUM 3.1 mmol/l (3.5-5.1); TOTAL PROTEIN 5.9 g/dL (6.3-8.2)
[2020-10-30 07:29] VITALS: BP 116/67
--- NOTE | 2020-10-30 07:50 | NUR ---
ASSESSMENT DONE. PATIENT IS ALERT BUT IS DROWSY. PATIENT DENIES PAIN AT THIS TIME. TELE IN PLACE. RESPS EVEN AND UNLABORED. PATIENT STATED HE HAD BM YESTERDAY AND HAS BEEN PASSING GAS TODAY. POC DISCUSS WITH PATIENT. PATIENT VERBALIZED UNDERSTANDING. PATIENT DENIES ANY OTHER NEEDS AT THIS TIME. BED ALARM IN PLACE. SAFETY PRECAUTIONS REINFROCED AND CALL LIGHT IN REACH.
[2020-10-30] MEDS ORDERED: LACTULOSE10 GM/15 M PO (10:55)
[2020-10-30 11:35] VITALS: BP 152/80
--- NOTE | 2020-10-30 12:25 | NUR ---
Discharge instructions given. Patient verbalizes understanding of same. Discharged in stable condition via Wheelchair to Home with significant other. All belongings sent with pt.
== END 2020-10-30 12:25 | disposition home or self-care (01) ==
LOC: ED 14:28 → MS2 18:09
PROVIDERS: Nurse Practitioner Family; ADMIT Internal Medicine; ATTEND Internal Medicine
DX: K72.00 Acute and subacute hepatic failure without coma (principal); N17.9 Acute kidney failure, unspecified; K74.60 Unspecified cirrhosis of liver; E87.6 Hypokalemia; E72.20 Disorder of urea cycle metabolism, unspecified; D64.9 Anemia, unspecified; N18.9 Chronic kidney disease, unspecified; T50.906A Underdosing of unspecified drugs, medicaments and biological substances, initial encounter; Z91.128 Patient's intentional underdosing of medication regimen for other reason; Z20.822 Contact with and (suspected) exposure to COVID-19
CPT/HCPCS: G0378

== ENCOUNTER 2021-01-03 10:30 | Observation (INO) | payer MEDICAID ==
[~2021-01-03] VITALS: Ht 167.6 cm; Wt 62.6 kg
--- NOTE | 2021-01-03 10:35 | NUR ---
PT IMMEDIATELY TO RM 10 VIA W/C.
[2021-01-03 11:02] LABS: HEMATOCRIT 28.6 % (39.0-50.0); HEMOGLOBIN 9.6 g/dl (14.0-18.0); IMMATURE GRANULOCYTES 0.5 % (0.0-5.0); MEAN CELL VOLUME 89.1 fL CALC (80.0-100.0); MEAN CORPUSCULAR HGB 29.9 pG CALC (26.0-32.0); MEAN CORPUSCULAR HGB CONC 33.6 g/dL CAL (32.0-36.0); NEUT# 6.45 thou/uL (1.82-7.42); RED BLOOD COUNT 3.21 mill/uL (4.70-6.10); RED CELL DISTRI WIDTH 14.7 % (11.5-15.5)
[2021-01-03 11:14] LABS: ALBUMIN 2.6 g/dL (3.2-5.0); POTASSIUM 3.1 mmol/l (3.5-5.1); TOTAL PROTEIN 6.5 g/dL (6.3-8.2)
[2021-01-03 11:24] LABS: INTERNATIONAL NORMALIZED RATIO 1.2 RATIO (0.7-1.3); PROTHROMBIN TIME 11.7 SECONDS (9.0-12.5)
[2021-01-03 11:34] LABS: BILIRUBIN, TOTAL 0.6 mg/dL (0.0-1.4)
--- NOTE | 2021-01-03 11:45 | NUR ---
PATIENT STATES HE IS UNABLE TO URINATE, BLADDER SCANNER COMPLETED AT 668. ORDER FOR OLSON CATHETER OBTAINED FROM DR. [place].
--- NOTE | 2021-01-03 12:10 | NUR ---
OLSON CATHETER 16 FR PLACED. PATIENT TOLERATED WELL.
[2021-01-03 12:23] LABS: URINE BILIRUBIN - DIPSTICK NEGATIVE (NEGATIVE); URINE BLOOD DIPSTICK LARGE (NEGATIVE); URINE GLUCOSE - DIPSTICK NEGATIVE (NEGATIVE); URINE KETONE NEGATIVE (NEGATIVE); URINE LEUK ESTERASE TRACE (NEGATIVE); URINE PROTEIN - DIPSTICK NEGATIVE (NEG-TRACE); URINE UROBILINOGEN - DIPSTICK 0.2 E.U./dL (0.2)
[2021-01-03 12:24] LABS: URINE COLOR DK. YELLOW; URINE NITRITE - DIPSTICK NEGATIVE (Negative)
[2021-01-03 12:27] LABS: URINE EPITHELIAL CELLS FEW EPI/hpf (0-FEW); URINE WBC 0-2 WBC/hpf (0-5)
--- NOTE | 2021-01-03 12:30 | NUR ---
PATIENT ATTEMPTING TO REMOVE OLSON AND LEG STABILIZER. PATIENT REORIENTED TO OLSON AND PLAN. PATIENT VERBALIZES UNDERSTANDING.
--- NOTE | 2021-01-03 13:16 | NUR ---
SBAR PRINTED TO FLOOR
[2021-01-03] MEDS ORDERED: LASIX 80 MG TAB80 MG PO (13:22)
[2021-01-03] MEDS ORDERED: VITAMIN D2400 UNIT PO (13:25)
--- NOTE | 2021-01-03 15:10 | NUR ---
ATTEMPTED TO CALL REPORT X3, CALLING, NO ANSWER, GOT A LIVE PERSON, STATES THEY WILL CALL BACK.
--- NOTE | 2021-01-03 15:47 | NUR ---
REPORT CALLED TO NURSE EVA
--- NOTE | 2021-01-03 15:48 | NUR ---
REPORT REC FROM Vincent STAFFORD RN
--- NOTE | 2021-01-03 15:49 | NUR ---
PT ARRIVED VIA STRETCHER ACCOMPANIED BY Diogo DAMON RN. PT A&O TO NAME AND PLACE, REORIENTED PT TO CURRENT TIME, FREQUENT REORIENTATION NEEDED. PT UNABLE TO RECALL MEDICAL HX, ATTEMPT WILL BE MADE TO CALL SIO. CLEAR BREATH SOUNDS UPON AUSCULTATION. HYPERACTIVE BOWEL SOUNDS HEARD. 16F OLSON CATHETER IN PLACE, PLACED BY ED STAFF, YELLOW URINE NOTED IN COLLECTION BAG. BRUISING AND SCABS NOTED TO ARM. IV HEALTHY AND PATENT; MAGNESIUM SULFATE CONTINUES. BED ALARM PLACED FOR SAFETY. PT UNABLE TO FOLLOW COMMANDS. WEAKNESS NOTED, FLATULANCE HEARD. PT DENIES ANY PAIN. ASSESSMENT COMPLETED. DISCUSSED POC.
--- NOTE | 2021-01-03 17:17 | NUR ---
LARGE LOOSE BM. PT ABLE TO AMBULATE TO BATHROOM WITH ASSISTANCE. PT ABLE TO TAKE PO MEDICATIONS WITHOUT DIFFICULTY AFTER FREQUENT ORIENTATION PT ASSISTED BACK INTO BED. BED ALARM IN PLACE FOR SAFETY
[2021-01-03 19:00] VITALS: BP 166/98
--- NOTE | 2021-01-03 19:30 | NUR ---
BED ALARM IS GOING OFF AND PATIENT IS RESTLESS AND WANTS TO GO HOME. PATIENT ASKING TO TALK TO HIS S/O. PATIENT IS AGGITATED-ADMITTED FOR HEPATIC ENCEPHALOPATHY. PATIENT ASSISTED WITH CALLING HIS S/O. PATIENT IS ALERT AND ORIENTED TO PERSON AND PLACE. IVF NS PATENT AND INFUSING VIA R FOREARM SITE. TELE MONITOR IN PLACE. OLSON CATH PATENT AND DRAINING RICA U RINE. BRUISING NOTED TO BOTH FOREARMS WITH SOME SCABS NOTED-SABRA. SAFETY PRECAUTIONS REINFORCED. BED ALARM RESET. CALL LIGHT IN REACH. WILL CONT TO MONITOR.
--- NOTE | 2021-01-03 21:00 | NUR ---
PATIENT ASSISTED OOB TO THE BR FOR BM AND THEN RETURNED TO THE BED. PATIENT IS MORE RELAXED AT THIS TIME. PATIENT PROVIDED WITH DRINK PER PATIENT REQUEST. TAKING HS MEDS ORDERED WITHOUT ANY DIFFICULTY. PATIENT IS KNOWLEDGEABLE ABOUT MEDICATIONS THAT HE IS TAKING. IVF PATENT AT 75CC/HR VIA RIGHT FOREARM. OLSON IS PATENT AND DRAINING RICA URINE. TELE MONITOR IN PLACE-LAST READING SR-92. PATIENT WITH ASCITES-HX OF CIRRHOSIS. SAFETY PRECAUTIONS REINFORCED.BED ALARM ACTIVATED. CALL LIGHT IN REACH. WILL CONT TO MONITOR.
[2021-01-04] VITALS (7 sets, daily range): BP systolic 97–146; BP diastolic 67–89
--- NOTE | 2021-01-04 01:00 | NUR ---
PATIENT RESTING IN BED AT THIS TIME-EYES ARE CLOSED RESTING ON LEFT SIDE. RESP ARE EVEN AND UNLABORED. IVF PATIENT AND INFUSING VIA RIGHT FOREARM SITE ORDERED AT 75CC/HR. TELE MONITOR IN PLACE. LAST READING WAS SR-89. OLSON CATH PATENT AND DRAINING RICA URINE. BED ALARM IN PLACE FOR PATIENT SAFETY. CALL LIGHT IN REACH. WILL CONT TO MONITOR.
--- NOTE | 2021-01-04 04:43 | NUR ---
PATIENT RESTING IN BED AT THIS TIME POSITIONED ON LEFT SIDE WITH EYES CLOSED. RESPS ARE EVEN AND UNLABORED. TELE MONITOR IN PLACE WITH LAST READING BEING SR-85. IVF NS PATENT AND INFUSING VIA RIGHT FOREARM AT 75CC/HR. OLSON CATH PATENT AND DRAINING RICA URINE. BED ALARM IN PLACE FOR PATIENT SAFETY. CALL LIGHT IN REACH. WILL CONT TO MONITOR.
[2021-01-04 05:54] LABS: ALBUMIN 2.4 g/dL (3.2-5.0); CREATININE 3.9 mg/dL (0.7-1.3); POTASSIUM 3.2 mmol/l (3.5-5.1)
[2021-01-04 05:56] LABS: HEMATOCRIT 30.7 % (39.0-50.0); HEMOGLOBIN 10.3 g/dl (14.0-18.0); MAGNESIUM 2.7 mg/dL (1.6-2.3); MEAN CELL VOLUME 89.2 fL CALC (80.0-100.0); MEAN CORPUSCULAR HGB 29.9 pG CALC (26.0-32.0); MEAN CORPUSCULAR HGB CONC 33.6 g/dL CAL (32.0-36.0); RED BLOOD COUNT 3.44 mill/uL (4.70-6.10); RED CELL DISTRI WIDTH 14.6 % (11.5-15.5)
--- NOTE | 2021-01-04 07:00 | NUR ---
SHIFT CHANGE REPORT, PT AWAKE ALERT AND ORIENTED, NO C/O PAIN/DISCOMFORT, DISSATISFIED ABOUT OLSON CATHETER AND ADAMANT ABOUT REMOVING IT, CATHETER REMOVED, MD NOTIFIED, PT STATES HE HAS NO PROBLEM URINATING AND JUST WANTS THE CATHETER OUT. IVF INFUSING, TELE MONITOR IN PLACE, CALL YA IN REACH AND BED LOCKED IN LOWEST POSITION.
--- NOTE | 2021-01-04 12:00 | NUR ---
RESTING IN BED, NO NEW COMPLAIN, REQUSTING SOLID FOODS AND MD WROTE ORDERS, WENT DOWN FOR PROCEDURE AND BACK TO ROOM, SETTLED IN BED WITH CALL YA IN REACH.
--- NOTE | 2021-01-04 16:00 | NUR ---
RESTING IN BED, VISITOR IN ROOM, ALL NEEDS MET/ADDRESSED.
--- NOTE | 2021-01-04 19:41 | NUR ---
IV PUMPT SOUNDED, PT IS SLEEPING, RESP EVEN AND NON-LABORED.
--- NOTE | 2021-01-04 20:36 | NUR ---
PT MEDICATED ORDERS PROVIDE. ABD FIRM DISTENDED, NON-TENDER WITH HYPER BOWEL SOUNDS. MILD WHEEZE IN UPPER LUNG SOUNDS, IVF DC'D AT THIS TIME. PT LOCX4 AT THIS TIME. BED ALARM IS STILL FOR PRECAUTIONARY MEASURES, BUT HE DID TELL ME "THEY HAVE THAT BED ALARM ON AND IF I DIDN'T HAVE THAT, I COULD TAKE MYSELF TO THE BATHROOM." I ASKED THAT HE CALL THROUGH [employer] SO WE CAN MAKE SURE HE IS STEADY AMBULATING, HE AGREED. CALL LIGHT IS IN HAND. LIGHTS AND TV ARE ON AT THIS TIME.
--- NOTE | 2021-01-05 00:11 | NUR ---
PT IS AWAKE WATCHING TV. NO S/O DISTRESS NOTED.
--- NOTE | 2021-01-05 03:20 | NUR ---
TALKED WITH PT ABOUT LACK OF URINATING. HE AMBULATED TO RESTROOM AND HAD 60CC OF DARK YELLOW URINE OUTPUT TO URINAL. I TALKED WITH HIM REGARDING OLSON CATHETER POSSIBLY NEEDED DUE TO URINARY RETENTION. HE EXPRESSED THAT HE DOESN'T UNDERSTAND WHY THEY TOOK THE OLSON CATH OUT EARLIER YESTERDAY. I APOLOGIZED, BUT TOLD HIM THAT WE WILL BLADDER SCAN AND MAKE A DECISION. HE VERBALIZED AGREEMENT.
--- NOTE | 2021-01-05 03:30 | NUR ---
PT BLADDER SCANNED AT THIS TIME. SCAN SHOWS >999, BUT HE DOES HAVE ASCITES ALSO. DIFFICULT TO KNOW WHAT IS THIS AND WHAT IS URINE IN THE BLADDER. I TALKED WITH HIM REGARDING FINDINGS AND LACK OF URINE OUTPUT. HE STATES, "I WASN'T HAVING THIS TROUBLE BEFORE I CAME TOT [facility]." HE ASKED FOR SOMETHING ELSE TO DRINK AND THAT HE WANTS TO THINK ABOUT THE CATHETER. HE IS QUITE UPSET ABOUT IT PREVIOUSLY BEING REMOVED AND DOES NOT UNDERSTAND WHY IT WAS TAKEN OUT IN THE FIRST PLACE IF HE NEEDS IT. HE REFUSES CATH AT THIS TIME AND SAID HE WILL THINK ABOUT IT.
--- NOTE | 2021-01-05 03:52 | NUR ---
AGAIN TALKED WITH PT ABOUT NEEDING OLSON CATHETER, HE STATED, "LET ME HAVE MY SNACK FIRST." "I WAS SUPPOSED TO GO HOME TOMORROW" I EXPLAINED TO THE PT THAT I UNDERSTAND THIS, BUT THAT HE HAS NOT HAD ENOUGH URINARY OUTPUT CONSIDERING HIS INTAKE.
[2021-01-05 04:01] VITALS: BP 129/84
--- NOTE | 2021-01-05 04:15 | NUR ---
16F OLSON CATHETER PLACED AT THIS TIME FOR URINARY RETENTION AND BLADDER SCAN >999 PT REPORTS FEELING PRESSURE IN BLADDER AREA PRIOR TO INSERTION. PT TOLERATED WELL, BUT DOES REPORT "BURNING" AT INSERTION SITE AFTER CATH WAS PLACED. 100CC OF CLEAR YELLOW OUTPUT AT THIS TIME IMMEDIATELY
--- NOTE | 2021-01-05 05:28 | NUR ---
PT MEDICATED ORDERS PROVIDE WITH LASIX. AUDITORY WHEEZING CAN BE HEARD FROM PT BREATHING AT THIS TIME. IVF ARE NOT RUNNING/EARLIER ORDERS TO DC. IV SITE APPEARS HEALTHY.
[2021-01-05 05:43] LABS: HEMATOCRIT 27.3 % (39.0-50.0); HEMOGLOBIN 8.9 g/dl (14.0-18.0); IMMATURE GRANULOCYTES 0.8 % (0.0-5.0); MEAN CELL VOLUME 90.7 fL CALC (80.0-100.0); MEAN CORPUSCULAR HGB 29.6 pG CALC (26.0-32.0); MEAN CORPUSCULAR HGB CONC 32.6 g/dL CAL (32.0-36.0); NEUT# 8.55 thou/uL (1.82-7.42); RED BLOOD COUNT 3.01 mill/uL (4.70-6.10); RED CELL DISTRI WIDTH 14.7 % (11.5-15.5)
[2021-01-05 06:19] LABS: ALBUMIN 2.3 g/dL (3.2-5.0); BILIRUBIN, TOTAL 0.7 mg/dL (0.0-1.4); CREATININE 3.6 mg/dL (0.7-1.3); POTASSIUM 3.7 mmol/l (3.5-5.1); TOTAL PROTEIN 5.8 g/dL (6.3-8.2)
[2021-01-05 07:40] VITALS: BP 111/74
[2021-01-05 08:38] VITALS: BP 111/74
--- NOTE | 2021-01-05 09:00 | NUR ---
MIKOT LAYING IN BED AT THIS TIME. JEWELRY SORTER DONE SEE INTERVENTIONS. LUNG MARSHALL CLEAR, ABDOMEN FIRM AND DISTENDED. PATIENT DENIES ANY PAIN AT THIS TIME. TELE MONITOR ON AND BEING MONITORED BY ED. BOWEL SOUNDS ARE HYPERACTIVE IN ALL FOUR QUADS. OLSON PATENT AND DRAINING YELLOW URINE AT THIS TIME. PHYSICAL THERAPY IN TO SEE PATIENT. SIDERAILS ARE UP X2 CALL LIGHT WIHTIN REACH.
[2021-01-05] MEDS ORDERED: TAMSULOSIN0.4 MG PO (10:53)
--- NOTE | 2021-01-05 11:59 | NUR ---
RADHA LAYING IN BED AT THIS TIME OLSON REMAINS PATENT AND DRAINING YELLOW URINE AT THIS TIME. PATIENT HAS BEEN D/C AND WILL GO HOME WITH OLSON INPLACE UNTIL SEEN BY DR. DE LEON. PATIENT VERBALIZES ALL D/C INSTRUCTIONS AT THIS TIME.
--- NOTE | 2021-01-05 13:46 | NUR ---
Discharge instructions given. Patient verbalizes understanding of same. Discharged in stable condition via Wheelchair to Home with family. All belongings sent with pt. PATIENT WENT HOME WIHT WHITNEY AND EDUCATION GIVEN TO PATIENT AND GIRLFRIEND ON PROPER CATH CARE. PATIENT WILL BE FOLLOWED BY [facility]
== END 2021-01-05 13:45 ==
LOC: ED 10:30 → ED-I 12:42 → ED 13:11 → MS2 13:12
PROVIDERS: Family Medicine; Internal Medicine Nephrology; Nurse Practitioner; ADMIT Internal Medicine; ATTEND Internal Medicine
DX: K70.40 Alcoholic hepatic failure without coma (principal); K70.31 Alcoholic cirrhosis of liver with ascites; E72.20 Disorder of urea cycle metabolism, unspecified; E87.6 Hypokalemia; R33.9 Retention of urine, unspecified; I12.9 Hypertensive chronic kidney disease with stage 1 through stage 4 chronic kidney disease, or unspecified chronic kidney disease; N18.4 Chronic kidney disease, stage 4 (severe); N17.9 Acute kidney failure, unspecified; E87.1 Hypo-osmolality and hyponatremia; E86.9 Volume depletion, unspecified; I95.9 Hypotension, unspecified; E87.2 Acidosis; D63.1 Anemia in chronic kidney disease; R31.9 Hematuria, unspecified; K21.9 Gastro-esophageal reflux disease without esophagitis; Z20.822 Contact with and (suspected) exposure to COVID-19
CPT/HCPCS: G0378; J3475; Q5106 EC

== ENCOUNTER 2021-01-08 12:01 | Inpatient (IN) | payer MEDICAID ==
[~2021-01-08] VITALS: Ht 165.1 cm; Wt 59.0 kg
[~2021-01-08 12:01] MED LIST changes: +LASIX 80 MG TAB80 MG PO; +TAMSULOSIN0.4 MG PO
--- NOTE | 2021-01-08 12:02 | NUR ---
PATIENT TO ROOM 11 VIA WC, REFUSES TO BE PLACED IN A GOWN AT THIS TIME.
--- NOTE | 2021-01-08 12:55 | NUR ---
TO RETURN TO LOBBY TO AWAIT OPEN BED
--- NOTE | 2021-01-08 13:00 | NUR ---
PATIENT HAS A OLSON URINARY CATHETER IN PLACE DRAINING YELLOW URINE. SPECIMEN OBTAINED AND SENT TO LAB.
--- NOTE | 2021-01-08 13:00 | NUR ---
TO TX ROOM VIA W/C
[2021-01-08 14:06] LABS: URINE BILIRUBIN - DIPSTICK NEGATIVE (NEGATIVE); URINE BLOOD DIPSTICK LARGE (NEGATIVE); URINE COLOR YELLOW; URINE GLUCOSE - DIPSTICK NEGATIVE (NEGATIVE); URINE KETONE NEGATIVE (NEGATIVE); URINE PH 5.5 (4.5-8.0); URINE PROTEIN - DIPSTICK TRACE mg/dL (NEG-TRACE); URINE UROBILINOGEN - DIPSTICK 0.2 E.U./dL (0.2)
[2021-01-08 14:07] LABS: HEMATOCRIT 25.3 % (39.0-50.0); HEMOGLOBIN 8.3 g/dl (14.0-18.0); MEAN CELL VOLUME 90.4 fL CALC (80.0-100.0); MEAN CORPUSCULAR HGB 29.6 pG CALC (26.0-32.0); MEAN CORPUSCULAR HGB CONC 32.8 g/dL CAL (32.0-36.0); NEUT# 7.37 thou/uL (1.82-7.42); RED BLOOD COUNT 2.8 mill/uL (4.70-6.10); RED CELL DISTRI WIDTH 15.1 % (11.5-15.5)
[2021-01-08 14:11] LABS: URINE LEUK ESTERASE MODERATE (NEGATIVE); URINE NITRITE - DIPSTICK NEGATIVE (Negative)
[2021-01-08 14:15] LABS: URINE BACTERIA FEW hpf; URINE EPITHELIAL CELLS FEW EPI/hpf (0-FEW); URINE MUCUS FEW hpf (NONE-FEW)
[2021-01-08 14:27] LABS: ACT PARTIAL THROMBO TIME 30.2 SECONDS (20.0-32.5); INTERNATIONAL NORMALIZED RATIO 1.2 RATIO (0.7-1.3); PROTHROMBIN TIME 11.8 SECONDS (9.0-12.5)
[2021-01-08 14:28] LABS: ALBUMIN 2.3 g/dL (3.2-5.0); BILIRUBIN, TOTAL 0.6 mg/dL (0.0-1.4); TOTAL PROTEIN 5.9 g/dL (6.3-8.2)
[2021-01-08 14:37] LABS: POTASSIUM 2.8 mmol/l (3.5-5.1)
[2021-01-08 14:38] LABS: CREATININE 5.8 mg/dL (0.7-1.3)
--- NOTE | 2021-01-08 16:00 | NUR ---
PATIENT RESTING, EYES CLOSED, NAD NOTED. VSS.
--- NOTE | 2021-01-08 17:14 | NUR ---
PLAN REVIEWED, PATIENT IS NOT HAPPY ABOUT STAYING, SPOUSE VERBALIZES UNDERSTANDING.
--- NOTE | 2021-01-08 19:08 | NUR ---
REPORT CALLED TO JIMMY. ALL QUESTIONS ANSWERED.
[2021-01-08 19:50] VITALS: BP 130/85
--- NOTE | 2021-01-08 22:00 | NUR ---
PHYSICAL ASSESMENT COMPLETE. PT CURRENTLY DENIES PAIN OR DISCOMFORT. SCHEDULED MEDICATIONS AND PRN MEDICATION ADMINISTERED, SEE E-MAR. PT DENIES ANY NEEDS AT THIS TIME. PLAN OF CARE REVIEWED, PT DENIES QUESTIONS, VERBALIZES UNDERSTANDING. ITEMS WITHIN REACH, BED LOCKED IN LOW POSITION W/ BEDRAILS UP X2. CALL YA WITHIN REACH, AGREES TO CALL PRN.
--- NOTE | 2021-01-08 22:44 | NUR ---
PT RECEIVED FROM ED TO ROOM 271. ARRIVES VIA STRETCHER ACCOMPANIED BY MANDY PALACIOS. PT AMBULATORY TO BED. GAIT UNSTEADY. PT DENIES PAIN AT THIS TIME. ORIENTED TO UNIT, ROOM, CALL YA, LIGHTS, TV. ICE WATER PROVIDED. CALL YA WITHIN REACH. AGREES TO CALL PRN.
[2021-01-09] VITALS (7 sets, daily range): BP systolic 90–116; BP diastolic 58–72
--- NOTE | 2021-01-09 | NUR ---
PT RESTING IN BED, NO SIGNS OF DISTRESS NOTED, RESP EVEN AND UNLABORED. PT VOICES NO NEEDS OR COMPLAINTS AT THIS TIME. CALL LIGHT IN REACH, CONTINUE TO MONITOR.
--- NOTE | 2021-01-09 03:50 | NUR ---
PT LAYING IN BED WITH EYES CLOSED, APPEARS TO BE SLEEPING, APPEARS COMFORTABLE AND IN NO DISTRESS. RESPIRATIONS REGULAR AND UNLABORED. ITEMS REMAIN WITHIN REACH, CALL YA REMAINS WITHIN REACH. BED REMAINS LOCKED AND IN LOW POSITION WITH BEDRAILS UP X2. WILL CONTINUE TO MONITOR.
[2021-01-09 06:05] LABS: HEMATOCRIT 26.6 % (39.0-50.0); HEMOGLOBIN 8.7 g/dl (14.0-18.0); IMMATURE GRANULOCYTES 0.7 % (0.0-5.0); MEAN CORPUSCULAR HGB 30.1 pG CALC (26.0-32.0); MEAN CORPUSCULAR HGB CONC 32.7 g/dL CAL (32.0-36.0); NEUT# 7.35 thou/uL (1.82-7.42); RED BLOOD COUNT 2.89 mill/uL (4.70-6.10); RED CELL DISTRI WIDTH 15.6 % (11.5-15.5)
--- NOTE | 2021-01-09 08:05 | NUR ---
ASSESSMENT IS COMPLETED: IV SITE IS FREE FROM REDNESS OR EDEMA. HR IS REG,PULSES ARE STRONG X4, ABD IS DISTENDED. BREATH SOUNDS ARE CLEAR BILATERALLY. OLSON DRAINING YELLOW URINE.
--- NOTE | 2021-01-09 09:53 | NUR ---
PT TRANSPORTED TO HAVE A PARACENTESIS
--- NOTE | 2021-01-09 10:39 | NUR ---
PT RETURNED FROM HAVING PARACENTESIS COMPLETED>
--- NOTE | 2021-01-09 11:38 | NUR ---
PT IS RELAXING WITH NO DISTRESS NOTED.
--- NOTE | 2021-01-09 15:56 | NUR ---
PT AMBULATED IN THE [place] WANTS TO WALK IN THE HALLWAY. IV SITE IS FREE FROM, REDNESS OR EDEMA.
--- NOTE | 2021-01-09 16:00 | NUR ---
PT IS CONTINUES TO AMBULATE IN THE [place]. IV SITE IS FREE FROM REDNESS OR EDEMA.
--- NOTE | 2021-01-09 18:31 | NUR ---
PT IS SITTING AT THE END OF THE [place] AT THE WINDOW. TALKING WITH FAMILY
[2021-01-10 04:26] VITALS: BP 85/48
--- NOTE | 2021-01-10 04:41 | NUR ---
PT BP LOW. 85/46. PT STATES HE FEELS FINE AND THAT AFTER HIS PREVIOUS PARACENTISIS HE HAD FLUCYUATIONS IN BLOOD PRESSURE. PT PLACED IN REVERSE TRENDELENBERG. WILL RECHECK BP AND CONTINUE TO MONITOR.
[2021-01-10 05:22] LABS: HEMATOCRIT 25.6 % (39.0-50.0); HEMOGLOBIN 8.5 g/dl (14.0-18.0); IMMATURE GRANULOCYTES 0.9 % (0.0-5.0); MEAN CELL VOLUME 90.1 fL CALC (80.0-100.0); MEAN CORPUSCULAR HGB 29.9 pG CALC (26.0-32.0); MEAN CORPUSCULAR HGB CONC 33.2 g/dL CAL (32.0-36.0); NEUT# 6.77 thou/uL (1.82-7.42); RED BLOOD COUNT 2.84 mill/uL (4.70-6.10); RED CELL DISTRI WIDTH 15.6 % (11.5-15.5)
[2021-01-10 05:47] LABS: ALBUMIN 1.9 g/dL (3.2-5.0); TOTAL PROTEIN 5.1 g/dL (6.3-8.2)
[2021-01-10 05:54] LABS: BILIRUBIN, TOTAL 0.3 mg/dL (0.0-1.4)
[2021-01-10 05:55] LABS: CREATININE 6.2 mg/dL (0.7-1.3)
[2021-01-10 08:20] VITALS: BP 87/48
--- NOTE | 2021-01-10 08:20 | NUR ---
ASSESSMENT IS COMPLETED: IV SITE IS FREE FROM REDNESS OR EDEMA. HR IS REG,PULSES ARE STRONG X4 ABD IS SOFT WITH ACTIVE BS. BREATH SOUNDS ARE CLEAR BILATERALLY. TELE MONITOR IN PLACE.
[2021-01-10 11:10] VITALS: BP 102/66
--- NOTE | 2021-01-10 12:00 | NUR ---
PT HAS BEEN AMBULATING IN THE ROOM, NO DISTRESS NOTED,.IV SITE IS FREE FROM REDNESS OR EDEMA.
[2021-01-10 14:38] VITALS: BP 104/71
--- NOTE | 2021-01-10 16:00 | NUR ---
PT IS AMBULATING IN THE ROOM.IV SITE IS FREE FROM REDENSS OR EDEMA. PT DID TAKE A NAP.
[2021-01-10 18:54] VITALS: BP 101/67
--- NOTE | 2021-01-10 20:00 | NUR ---
PT UP IN BED UPON ASSESSMENT. ASSESSMENT COMPLETED, PLEASE SEE DOCUMENTATION. IV RUNNING ALBUMIN PER ORDER. BREATHING EVEN AND UNLABORED. OLSON REMAINS DRAINING CLEAR YELLOW URINE TO GRAVITY. URINE SAMPLE TO BE OBTAINED, AT THIS TIME PT DOES NOT HAVE ANY URINE AVAILABLE IN CATHTER TUBING. NO COMPLAINTS OF PAIN REPORTED. PREFERS TO KEEP OVERHEAD LIGHT ON, LIGHT LEFT ON FOR PT COMFORT SAFETY PRECAUTIONS IN PLACE, BED IN LOWEST POSITION, CALL LIGHT WITHIN REACH.
--- NOTE | 2021-01-10 23:59 | NUR ---
URINE SAMPLE OBTAINED VIA OLSON ACCESS PORT WHILE URINE WAS STILL IN TUBING. NO COMPLAINTS VOICED. LAB NOTIFIED FOR SAMPLE USPS LETTER CARRIER, PENDING USPS LETTER CARRIER AT THIS TIME. WILL MONITOR
[2021-01-11] VITALS: BP 109/70
--- NOTE | 2021-01-11 00:35 | NUR ---
PT IN BED RESTING QUIETLY, NO S/S OF DISTRESS NOTED. NO COMPLAINTS VOICED. BREATHING EVEN AND UNLABORED. PT IS HARD OF HEARING SO SOMETIMES COMMUNICATION IS LOST IN TRANSIT. SPEAKING LOUDER USUALLY CORRECT COMMUNICATION ISSUE. DENIES PAIN AT THIS TIME. PT HAS HIS IV POLE SECURED TO HIS WALKER WITH SOME KIND OF TIE/BELT. PT INDICATED IT WORKED BETTER FOR HIM IF THEY ARE ATTACHED. PT KNOWS TO PLUG BACK IN IV PUMPS WHEN HE IS FINISHED TOILETING. PT REPORTS 3 BM, LOOSE, AND A LARGE AMOUNT SINCE THE TOP OF SHIFT. REPORTS LACTULOSE GIVES HIM DIARRHEA. ADVISED PT THAT LACTULOSE BINDS TO AMMONIA IN THE BODY AND DECREASES AMMONIA LEVELS. PT VERBALIZED UNDERSTANDING TO INSTRUCTION GIVEN. WILL CONTINUE TO MONITOR. SAFETY PRECAUTIONS IN PLACE, CALL LIGHT WITHIN REACH, BED IN LOWEST POSITION.
[2021-01-11 00:59] LABS: URINE BILIRUBIN - DIPSTICK NEGATIVE (NEGATIVE); URINE BLOOD DIPSTICK LARGE (NEGATIVE); URINE CLARITY CLEAR; URINE COLOR YELLOW; URINE GLUCOSE - DIPSTICK NEGATIVE (NEGATIVE); URINE KETONE NEGATIVE (NEGATIVE); URINE LEUK ESTERASE MODERATE (Negative); URINE NITRITE - DIPSTICK NEGATIVE (Negative); URINE PH 5.5 (4.5-8.0); URINE UROBILINOGEN - DIPSTICK 0.2 E.U./dL (0.2)
[2021-01-11 01:00] LABS: URINE PROTEIN - DIPSTICK NEGATIVE (NEG-TRACE)
[2021-01-11 01:01] LABS: URINE BACTERIA MODERATE hpf; URINE EPITHELIAL CELLS MODERATE EPI/hpf (0-FEW); URINE RBC 50-100 RBC/hpf (0-5); URINE WBC 20-50 WBC/hpf (0-5)
[2021-01-11 04:00] VITALS: BP 116/74
--- NOTE | 2021-01-11 04:00 | NUR ---
PT RESTING QUIETLY IN BED, NO CONCERNS VOICED. 0200 ALBUMIN HUNG PER ORDER, NO S/S OF COMPLICATTIONS R/T MEDICATION. DAILY WEIGHT COMPLETED BY ASSIGNED STAFF THAT INDICATED PT HAD GAIN 2KG OF WEIGHT SINCE THIS TIME YESTERDAY. NO C/O PAIN AT THIS TIME. NO S/S OF DISTRESS. WILL MONITOR
[2021-01-11 05:30] LABS: BUN 57 mg/dL (9-20); CHLORIDE 116 mmol/l (95-108); MAGNESIUM 2.5 mg/dL (1.6-2.3); POTASSIUM 2.8 mmol/l (3.5-5.1); SODIUM 138 mmol/l (137-146)
[2021-01-11 05:32] LABS: HEMATOCRIT 24.3 % (39.0-50.0); MEAN CELL VOLUME 91.4 fL CALC (80.0-100.0); MEAN CORPUSCULAR HGB 30.1 pG CALC (26.0-32.0); MEAN CORPUSCULAR HGB CONC 32.9 g/dL CAL (32.0-36.0); RED BLOOD COUNT 2.66 mill/uL (4.70-6.10)
[2021-01-11 05:36] LABS: CARBON DIOXIDE 10 mmol/l (22-30)
[2021-01-11 05:43] LABS: CREATININE 6.3 mg/dL (0.7-1.3); GFR 9 ML/MIN (>=60 (CALC)); GFR FOR AFR.AMER. 11 ML/MIN (>=60 (CALC))
[2021-01-11 05:44] LABS: ALBUMIN 2.5 g/dL (3.2-5.0)
--- NOTE | 2021-01-11 06:24 | NUR ---
RECEIVED CALL FROM LAB INDICATING PT HAS A CRITICALLY HIGH LAB VALUE- CREATININE 6.3. CREATININE AT THIS TIME YESTERDAY WAS 6.2. MD AWARE OF TREND AND TREATMENT IN PLACE, HOWEVER, MD MADE AWARE OF CRITICALLY HIGH VALUE AND INTERVENTION DOCUMENTED.
--- NOTE | 2021-01-11 07:00 | NUR ---
SHIFT CHANGE REPORT, PT AWAKE ALERT AND ORIENTED SITTING UP ON WALKER SEAT, NO C/O DISCOMFOT AT THIS TIME, TAKES PERSONAL INTEREST IN PLAN OF CARE AND ASKS MANY QUESTIONS, IVF INFUSING, TELE MONITOR IN PLACE, CALL YA IN REACH.
[2021-01-11 08:04] VITALS: BP 101/66
--- NOTE | 2021-01-11 10:39 | NUR ---
INFORMED OF PROCEDURE AND STATES UNDERSTANDING, BEING TRANSPORTED OFF UNIT AT THIS TIME VIA W/C TO RADIOLOGY.
--- NOTE | 2021-01-11 11:34 | NUR ---
RETURNED FROM PROCEDURE AND SETTLED IN ROOM.
[2021-01-11 15:10] VITALS: BP 95/60
--- NOTE | 2021-01-11 16:08 | NUR ---
AMBULATING IN ROOM AT THIS TIME, NO NEW COMPLAINS, ALL NEEDS ADDRESSED, CALL YA IN REACH.
[2021-01-11 17:11] VITALS: BP 119/78
[2021-01-11 19:00] VITALS: BP 115/59
[2021-01-12] VITALS (7 sets, daily range): BP systolic 104–128; BP diastolic 58–81
--- NOTE | 2021-01-12 03:50 | NUR ---
PT IS RESTLESS THIS MORMING UP TO THE CHAIR AND BACK TO HIS BED SEVERAL TIMES. PT HAS NO PAIN OR REQUESTS. WILL CONTINUE TO MONITOR.
[2021-01-12 06:18] LABS: ALBUMIN 2.4 g/dL (3.2-5.0); POTASSIUM 2.9 mmol/l (3.5-5.1); TOTAL PROTEIN 5.6 g/dL (6.3-8.2)
[2021-01-12 06:30] LABS: BILIRUBIN, TOTAL 0.7 mg/dL (0.0-1.4); CREATININE 6.4 mg/dL (0.7-1.3)
--- NOTE | 2021-01-12 07:00 | NUR ---
SHIFT CHANGE REPORT, PT AWAKE ALERT AND ORIENTED AMBULATING IN ROOM, DENIES DISCOMFORT, TELE MONITOR IN PLACE, IVF INFUSING, OLSON CATHETER IN PLACE WITH YELLOW URINE, CALL YA IN REACH.
--- NOTE | 2021-01-12 12:00 | NUR ---
AMBULATED DOWN HALLWAY AND BACK TO ROOM, MEAL SERVED, PT INFORMED OF NEW ORDERS AND STATES UNDERSTANDING, ALL NEEDS ADDRESSED.
--- NOTE | 2021-01-12 16:00 | NUR ---
PT SITTING UP IN RECLINER, SIGNIFICANT OTHER VISITING, NO NEW COMPLAINS AT THIS TIME, WILL CONTINUE TO MONITOR.
--- NOTE | 2021-01-12 19:25 | NUR ---
PT AMBULATING HALLWAY. DENIES ANY DISTRESSES AT THIS TIME. PT IS USING WALKER WHILE AMBULATING.
--- NOTE | 2021-01-12 20:15 | NUR ---
IVPUMP SOUNDED, MEDICATION COMPLETE AT THIS TIME. PT WAS WEARING X4 HEAVY JACKETS ZIPPED UP. I ASKED HIM TO REMOVE TWO OF THEM SO THAT I WAS ABLE TO ACCESS IV SITE. SITE APPEARS HEALTHY AT THIS TIME.
--- NOTE | 2021-01-12 21:14 | NUR ---
PT MEDICATED ORDERS PROVIDE. HE IS NOW IN BED, HEAD WAS COVERED WITH BLANKET I ENTERED THE ROOM, BUT RESPONDED TO MY VOICE, UNCOVERED HIS HEAD. I OFFERED TO TURN THE LIGHTS OFF FOR SLEEP, BUT HE WANTED THEM LEFT ON.
--- NOTE | 2021-01-13 02:29 | NUR ---
ENTERED THE ROOM TO MEDICATE PT, HE HAD BLANKET OVER HIS HEAD AND MULTIPLE JACKETS ZIPPED ON. I ASKED HIM TO REMOVE THE JACKETS SO THAT I COULD HAVE IV ACCESS, HE STARTED REFUSING AND THEN AGREED, BUT WAS VERY SLOW TO WAKE UP AND COOPERATE. HE AGREED TO MEDICATION ADMINISTRATION AT THIS TIME. ALBUMIN RUNNING PRESCRIBED AND PROVIDED BY PHARMACY AT 25ML/HR TO SITE IN RAC/SITE APPEARS HEALTHY AND FLUSHED PATENT PRIOR TO ADMINISTRATION.
[2021-01-13 04:00] VITALS: BP 112/68
--- NOTE | 2021-01-13 04:10 | NUR ---
PT ASSISTED UP TO RESTROOM. ALBUMIN IS HALF COMPTETED AT THIS TIME, 2ND VIAL ADMINSTERING AT THIS TIME.
[2021-01-13 05:04] LABS: HEMATOCRIT 28.2 % (39.0-50.0); HEMOGLOBIN 9.1 g/dl (14.0-18.0); MEAN CELL VOLUME 93.7 fL CALC (80.0-100.0); MEAN CORPUSCULAR HGB 30.2 pG CALC (26.0-32.0); MEAN CORPUSCULAR HGB CONC 32.3 g/dL CAL (32.0-36.0); RED BLOOD COUNT 3.01 mill/uL (4.70-6.10); RED CELL DISTRI WIDTH 16.9 % (11.5-15.5)
[2021-01-13 05:29] LABS: MAGNESIUM 2.3 mg/dL (1.6-2.3); POTASSIUM 3.3 mmol/l (3.5-5.1)
[2021-01-13 05:44] LABS: ALBUMIN 3.2 g/dL (3.2-5.0); CREATININE 7.1 mg/dL (0.7-1.3)
--- NOTE | 2021-01-13 06:26 | NUR ---
INSPECTOR AND MENDER COAL EQUIPMENT OPERATOR NOTIFIED OF CRITICAL LAB RESULTS.
--- NOTE | 2021-01-13 07:23 | NUR ---
Checked on the patient: As expected , he is ambulating independently in room and throughout the hallway with rollator. I encouraged continued activity. FOr now we will DC as he is functionally independent.
--- NOTE | 2021-01-13 07:35 | NUR ---
ASSESSMENT IS COMPLETED: IV SITE IS FREE FROM REDNESS OR EDEMA. HR IS REG,PULSES ARE STRONG X4,ABD IS SOFT WITH ACTIVE BS, BREATH SOUNDS ARE CLEAR,BILATERALLY. TELE MONITOR IN PLACE.
[2021-01-13 09:05] VITALS: BP 90/57
--- NOTE | 2021-01-13 10:17 | NUR ---
PT TOLD HIS GIRLFRIEND THAT HE WAS GOING TO BE INSTITUTIONALIZED. EXPLAINED WAITING FOR DR NEWSOME TO LET US KNOW WHAT HE WANTS TO DO. FAMILY IS VERY UPSET STATED" I TAKE CARE OF MY MOTHER AND I CAN TAKE ARE OF HIM"
[2021-01-13 11:00] VITALS: BP 102/69
--- NOTE | 2021-01-13 11:00 | NUR ---
FAMILY WS CALLED BY CALVIN APARICIO RE: TRANSFERING TO [facility] WHEN A BED IS AVAILABLE.
--- NOTE | 2021-01-13 12:00 | NUR ---
PT HAS BEEN AMBULATING IN THE ROOM. IV SITE IS FREE FROM REDNESS OR EDEMA.
--- NOTE | 2021-01-13 12:20 | NUR ---
BED HAS BECOME AVAILABLE PT IS SPEAKING TO HIS GIRLFRIEND ON THE PHONE.
--- NOTE | 2021-01-13 13:10 | NUR ---
200UA OUT. OF OLSON IV SITE IN RAC WITH #20. FLUSHES WELL,
--- NOTE | 2021-01-13 13:19 | NUR ---
GAVE REPORT TO EDMAR PALACIOS AT [facility], IV SITE REMAINS INTACT NO REDNESS OR EDEMA FLUSHES WELL. EXPLAINED ABOUT PT C/O" WHEN YOU PULL IT HURTS"BELIEVE IT IS THE TAPE. FAMILY HERE TO ASSIST WITH GETTING ALL BELONGINGS TOGETHER FOR TRANSFER. CONTINUE TO OBSERVE AND MONITOR.
[2021-01-13 15:12] VITALS: BP 102/69
== END 2021-01-13 13:16 | DRG 441 ==
LOC: ED 12:01 → ED-I 15:40 → ED 16:11 → MS2 16:21
PROVIDERS: Internal Medicine Nephrology; Nurse Practitioner; ADMIT Internal Medicine; ATTEND Internal Medicine
PROC: 0W9G3ZZ Drainage of Peritoneal Cavity, Percutaneous Approach (ICD-10-PCS; principal; 2021-01-09)
PROC: 0W9G3ZZ Drainage of Peritoneal Cavity, Percutaneous Approach (ICD-10-PCS; 2021-01-11)
DX: K72.00 Acute and subacute hepatic failure without coma (principal); K76.7 Hepatorenal syndrome; R18.8 Other ascites; E72.20 Disorder of urea cycle metabolism, unspecified; N17.9 Acute kidney failure, unspecified; N18.4 Chronic kidney disease, stage 4 (severe); E87.2 Acidosis; K74.60 Unspecified cirrhosis of liver; I12.9 Hypertensive chronic kidney disease with stage 1 through stage 4 chronic kidney disease, or unspecified chronic kidney disease; E87.6 Hypokalemia; I95.9 Hypotension, unspecified; D63.1 Anemia in chronic kidney disease; R31.9 Hematuria, unspecified; E86.9 Volume depletion, unspecified; K21.9 Gastro-esophageal reflux disease without esophagitis; R33.9 Retention of urine, unspecified; Z96.0 Presence of urogenital implants; Z20.822 Contact with and (suspected) exposure to COVID-19
CPT/HCPCS: P9047; Q5106 EC

== ENCOUNTER 2021-01-23 09:07 | Emergency (ER) | payer MEDICARE, MEDICAID ==
[~2021-01-23] VITALS: Ht 165.1 cm; Wt 90.0 kg
[2021-01-23] MEDS ORDERED: AUGMENTIN250 MG PO (09:31)
[2021-01-23] MEDS ORDERED: CALCIUM CARB PO (09:33)
[2021-01-23] MEDS ORDERED: DOCUSATE SODIU100 MG PO (09:34)
[2021-01-23] MEDS ORDERED: EPOGEN4000 U/ML IJ (09:34)
[2021-01-23] MEDS ORDERED: MIDODRINE HYDROC5 MG PO (09:35)
[2021-01-23] MEDS ORDERED: XIFAXAN550 MG PO (09:36)
[2021-01-23] MEDS ORDERED: VITAMIN D22000 UNIT PO (09:37)
[2021-01-23 09:45] LABS: HEMATOCRIT 27.4 % (39.0-50.0); HEMOGLOBIN 8.7 g/dl (14.0-18.0); MEAN CELL VOLUME 96.5 fL CALC (80.0-100.0); MEAN CORPUSCULAR HGB 30.6 pG CALC (26.0-32.0); MEAN CORPUSCULAR HGB CONC 31.8 g/dL CAL (32.0-36.0); NEUT# 8.41 thou/uL (1.82-7.42); RED BLOOD COUNT 2.84 mill/uL (4.70-6.10); RED CELL DISTRI WIDTH 19.2 % (11.5-15.5)
[2021-01-23 09:59] LABS: INTERNATIONAL NORMALIZED RATIO 1.4 RATIO (0.7-1.3)
[2021-01-23 10:00] LABS: ALBUMIN 2.9 g/dL (3.2-5.0); BILIRUBIN, TOTAL 0.9 mg/dL (0.0-1.4); TOTAL PROTEIN 6.2 g/dL (6.3-8.2)
[2021-01-23 10:02] LABS: CREATININE 4.9 mg/dL (0.7-1.3); POTASSIUM 2.4 mmol/l (3.5-5.1)
[2021-01-23 16:29] VITALS: BP 92/56
== END 2021-01-23 16:32 | disposition home or self-care (01) ==
LOC: ED 09:07
PROVIDERS: Emergency Medicine
DX: K74.60 Unspecified cirrhosis of liver (principal); R18.8 Other ascites; E87.6 Hypokalemia; I12.0 Hypertensive chronic kidney disease with stage 5 chronic kidney disease or end stage renal disease; N18.6 End stage renal disease
CPT/HCPCS: P9047

== ENCOUNTER 2021-01-26 09:35 | Emergency (ER) | payer MEDICARE, MEDICAID ==
[~2021-01-26] VITALS: Ht 165.1 cm; Wt 59.0 kg
[~2021-01-26 09:35] MED LIST changes: +AUGMENTIN250 MG PO; +CALCIUM CARB PO; +DOCUSATE SODIU100 MG PO; +EPOGEN4000 U/ML IJ; +VITAMIN D22000 UNIT PO; +XIFAXAN550 MG PO
[2021-01-26 11:03] LABS: BILIRUBIN, TOTAL 1.1 mg/dL (0.0-1.4); CREATININE 4.1 mg/dL (0.7-1.3); POTASSIUM 2.8 mmol/l (3.5-5.1); TOTAL PROTEIN 6.3 g/dL (6.3-8.2)
[2021-01-26 11:26] LABS: HEMATOCRIT 29.1 % (39.0-50.0); IMMATURE GRANULOCYTES 0.4 % (0.0-5.0); MEAN CORPUSCULAR HGB 30.6 pG CALC (26.0-32.0); MEAN CORPUSCULAR HGB CONC 30.9 g/dL CAL (32.0-36.0); NEUT# 11.99 thou/uL (1.82-7.42); RED BLOOD COUNT 2.94 mill/uL (4.70-6.10); RED CELL DISTRI WIDTH 19.3 % (11.5-15.5)
[2021-01-26] MEDS ORDERED: POTASSIUM CHLO20 ME2 PO (13:58)
[2021-01-26 14:06] VITALS: BP 109/62
== END 2021-01-26 14:12 | disposition home or self-care (01) ==
LOC: ED 09:35
PROVIDERS: Emergency Medicine
DX: R51.9 Headache, unspecified (principal); E87.6 Hypokalemia; E87.1 Hypo-osmolality and hyponatremia; K74.60 Unspecified cirrhosis of liver; I12.0 Hypertensive chronic kidney disease with stage 5 chronic kidney disease or end stage renal disease; N18.6 End stage renal disease; Z99.2 Dependence on renal dialysis

== ENCOUNTER 2021-01-30 09:01 | Emergency (ER) | payer MEDICARE, MEDICAID ==
[~2021-01-30 09:01] MED LIST changes: +POTASSIUM CHLO20 ME2 PO
== END 2021-01-30 09:26 | disposition left against medical advice (07) ==
LOC: ED 09:01 → LWOBS 09:22
DX: Z53.21 Procedure and treatment not carried out due to patient leaving prior to being seen by health care provider (principal)

== ENCOUNTER 2021-02-23 06:18 | Emergency (ER) | payer MEDICARE, MEDICAID ==
[2021-02-23 07:45] LABS: HEMOGLOBIN 12.2 g/dl (14.0-18.0); IMMATURE GRANULOCYTES 1.4 % (0.0-5.0); MEAN CELL VOLUME 94.4 fL CALC (80.0-100.0); MEAN CORPUSCULAR HGB 31.1 pG CALC (26.0-32.0); NEUT# 12.96 thou/uL (1.82-7.42); RED BLOOD COUNT 3.92 mill/uL (4.70-6.10); RED CELL DISTRI WIDTH 17.2 % (11.5-15.5)
[2021-02-23 08:02] LABS: ALBUMIN 2.5 g/dL (3.2-5.0); BILIRUBIN, TOTAL 0.8 mg/dL (0.0-1.4); MAGNESIUM 2.1 mg/dL (1.6-2.3); TOTAL PROTEIN 6.2 g/dL (6.3-8.2)
[2021-02-23 08:06] LABS: POTASSIUM 2.2 mmol/l (3.5-5.1)
[2021-02-23 13:50] VITALS: BP 140/66
== END 2021-02-23 13:58 | disposition short-term general hospital (02) ==
LOC: ED 06:18
PROVIDERS: Family Medicine
PROC: 0W9G3ZZ Drainage of Peritoneal Cavity, Percutaneous Approach (ICD-10-PCS; principal; 2021-02-23)
DX: K80.00 Calculus of gallbladder with acute cholecystitis without obstruction (principal); K65.2 Spontaneous bacterial peritonitis; I12.0 Hypertensive chronic kidney disease with stage 5 chronic kidney disease or end stage renal disease; N18.6 End stage renal disease; E87.6 Hypokalemia; E72.20 Disorder of urea cycle metabolism, unspecified; K74.60 Unspecified cirrhosis of liver; R18.8 Other ascites; Z99.2 Dependence on renal dialysis; Z20.822 Contact with and (suspected) exposure to COVID-19
CPT/HCPCS: J2060; J3475

== ENCOUNTER 2021-03-07 04:46 | Emergency (ER) | payer MEDICARE, MEDICAID ==
[~2021-03-07] VITALS: Ht 165.1 cm; Wt 56.3 kg
[2021-03-07 06:49] LABS: HEMATOCRIT 34.7 % (39.0-50.0); HEMOGLOBIN 11.8 g/dl (14.0-18.0); IMMATURE GRANULOCYTES 0.7 % (0.0-5.0); MEAN CELL VOLUME 94.8 fL CALC (80.0-100.0); MEAN CORPUSCULAR HGB 32.2 pG CALC (26.0-32.0); NEUT# 9.62 thou/uL (1.82-7.42); RED BLOOD COUNT 3.66 mill/uL (4.70-6.10); RED CELL DISTRI WIDTH 19.4 % (11.5-15.5)
[2021-03-07 06:53] LABS: ALBUMIN 2.5 g/dL (3.2-5.0); BILIRUBIN, TOTAL 0.7 mg/dL (0.0-1.4); POTASSIUM 2.5 mmol/l (3.5-5.1); TOTAL PROTEIN 5.8 g/dL (6.3-8.2)
[2021-03-07 06:58] LABS: CREATININE 6.9 mg/dL (0.7-1.3); MAGNESIUM 2.7 mg/dL (1.6-2.3)
[2021-03-07 07:11] LABS: INTERNATIONAL NORMALIZED RATIO 1.3 RATIO (0.7-1.3); PROTHROMBIN TIME 13.3 SECONDS (9.0-12.5)
[2021-03-07 11:34] VITALS: BP 94/53
== END 2021-03-07 11:36 | disposition short-term general hospital (02) ==
LOC: ED 04:46
PROVIDERS: Emergency Medicine
DX: K72.90 Hepatic failure, unspecified without coma (principal); I12.0 Hypertensive chronic kidney disease with stage 5 chronic kidney disease or end stage renal disease; N18.6 End stage renal disease; Z99.2 Dependence on renal dialysis; K74.60 Unspecified cirrhosis of liver; E72.20 Disorder of urea cycle metabolism, unspecified; E87.6 Hypokalemia; E87.2 Acidosis; F10.10 Alcohol abuse, uncomplicated; Z20.822 Contact with and (suspected) exposure to COVID-19
CPT/HCPCS: J2060

== ENCOUNTER 2021-03-15 05:40 | Emergency (ER) | payer MEDICARE, MEDICAID | END 2021-03-15 07:05 | disposition left against medical advice (07) | LOC: ED 05:40 | DX: R53.1 Weakness (principal); K74.60 Unspecified cirrhosis of liver; I12.0 Hypertensive chronic kidney disease with stage 5 chronic kidney disease or end stage renal disease; N18.6 End stage renal disease; Z99.2 Dependence on renal dialysis; Z91.19 Patient's noncompliance with other medical treatment and regimen ==

== ENCOUNTER → 2021-03-16 | Emergency (ER) | payer MEDICARE, MEDICAID ==
[~2021-03-16] VITALS: Ht 165.1 cm; Wt 68.2 kg
[2021-03-16 08:31] LABS: HEMATOCRIT 38.2 % (39.0-50.0); HEMOGLOBIN 12.5 g/dl (14.0-18.0); IMMATURE GRANULOCYTES 1.6 % (0.0-5.0); MEAN CELL VOLUME 95.5 fL CALC (80.0-100.0); MEAN CORPUSCULAR HGB 31.3 pG CALC (26.0-32.0); MEAN CORPUSCULAR HGB CONC 32.7 g/dL CAL (32.0-36.0); NEUT# 13.62 thou/uL (1.82-7.42); RED CELL DISTRI WIDTH 18.4 % (11.5-15.5)
[2021-03-16 08:48] LABS: ALBUMIN 2.8 g/dL (3.2-5.0); POTASSIUM 2.9 mmol/l (3.5-5.1); TOTAL PROTEIN 6.7 g/dL (6.3-8.2)
[2021-03-16 08:58] LABS: BILIRUBIN, TOTAL 1.1 mg/dL (0.0-1.4); CREATININE 9.5 mg/dL (0.7-1.3)
[2021-03-16 11:43] VITALS: BP 142/66
== END | disposition short-term general hospital (02) ==
LOC: ED 06:50
PROVIDERS: Family Medicine
DX: K72.90 Hepatic failure, unspecified without coma (principal); E72.20 Disorder of urea cycle metabolism, unspecified; I12.0 Hypertensive chronic kidney disease with stage 5 chronic kidney disease or end stage renal disease; N18.6 End stage renal disease; Z99.2 Dependence on renal dialysis; K74.60 Unspecified cirrhosis of liver; I95.89 Other hypotension; Z91.15 Patient's noncompliance with renal dialysis; Z20.822 Contact with and (suspected) exposure to COVID-19
CPT/HCPCS: J3475

== ENCOUNTER 2021-03-25 07:41 | Emergency (ER) | payer MEDICARE, MEDICAID ==
[~2021-03-25] VITALS: Ht 165.1 cm; Wt 50.0 kg
[2021-03-25 08:34] LABS: HEMATOCRIT 36.8 % (39.0-50.0); HEMOGLOBIN 12.2 g/dl (14.0-18.0); IMMATURE GRANULOCYTES 3.1 % (0.0-5.0); MEAN CELL VOLUME 95.6 fL CALC (80.0-100.0); MEAN CORPUSCULAR HGB 31.7 pG CALC (26.0-32.0); MEAN CORPUSCULAR HGB CONC 33.2 g/dL CAL (32.0-36.0); NEUT# 17.79 thou/uL (1.82-7.42); RED BLOOD COUNT 3.85 mill/uL (4.70-6.10); RED CELL DISTRI WIDTH 18.2 % (11.5-15.5)
[2021-03-25 08:49] LABS: ALBUMIN 2.5 g/dL (3.2-5.0); BILIRUBIN, TOTAL 0.8 mg/dL (0.0-1.4); MAGNESIUM 2.4 mg/dL (1.6-2.3); POTASSIUM 2.5 mmol/l (3.5-5.1); TOTAL PROTEIN 5.9 g/dL (6.3-8.2)
[2021-03-25 08:50] LABS: INTERNATIONAL NORMALIZED RATIO 1.5 RATIO (0.7-1.3); PROTHROMBIN TIME 15.1 SECONDS (9.0-12.5)
[2021-03-25 13:30] VITALS: BP 96/58
--- NOTE | 2021-03-25 13:41 | NUR ---
PT INTUBNATED PER AIRWAY PROTECTION. UPON INTUBATION, MAKE UP EDITOR NOTICED COPIOUS AMOUNT OF THIN, COFFEE GROUND LIQUIDS WITHIN THE ORAL CAVITY. SXN APPLIED AND AIRWAY OBTAINED AND SECURES. VERIFIED VIA ETCO2 DETECTOR, BBS, CONDENSATION AND CXR UPON ARRIVAL. TRANSPORT TEAM C PT AT THIS TIME. NO FURTHER INTERVENTIONS NECESSARY FROM THIS MAKE UP EDITOR.
[2021-03-25 14:50] VITALS: BP 115/76
== END 2021-03-25 14:50 | disposition short-term general hospital (02) ==
LOC: ED 07:41
PROVIDERS: Family Medicine
PROC: 06HY33Z Insertion of Infusion Device into Lower Vein, Percutaneous Approach (ICD-10-PCS; principal; 2021-03-25)
PROC: 0BH17EZ Insertion of Endotracheal Airway into Trachea, Via Natural or Artificial Opening (ICD-10-PCS; 2021-03-25)
DX: K70.40 Alcoholic hepatic failure without coma (principal); I95.9 Hypotension, unspecified; K70.31 Alcoholic cirrhosis of liver with ascites; F10.20 Alcohol dependence, uncomplicated; I12.0 Hypertensive chronic kidney disease with stage 5 chronic kidney disease or end stage renal disease; N18.6 End stage renal disease; Z99.2 Dependence on renal dialysis; Z20.822 Contact with and (suspected) exposure to COVID-19
CPT/HCPCS: J2060; J2354; J3475; P9016; S0164